=== PATIENT | female | born 1950 | race Caucasian/White ===

== ENCOUNTER → 2017-05-24 | Outpatient (CLI) | payer MEDICARE, BC ==
[2017-05-24 10:57] LABS: EKG EKG PERFORMED
[2017-05-24 11:30] LABS: Appearance,Urine Clear (Clear); Bilirubin,Urine Negative (Negative); Glucose,Urine (UA) Negative (Negative); Ketones,Urine Negative (Negative); Leukocyte Esterase,Urine Negative (Negative); Nitrite,Urine Negative (Negative); PH, Urine 5.5 (5.0-8.0); Protein,Urine Negative (Negative); UA Billing (MACRO vs. MICRO) CHEM; Urobilinogen,Urine <2.0 mg/dL (<2.0)
[2017-05-24 11:41] LABS: CH 30.3; CHCM 33.3; HCT 41.8 % (34.0-46.0); HDW 2.38; HGB 13.4 gm/dL (11.4-16.0); MCH 29.1 pg (25.0-35.0); MCV 91.2 fL (80.0-100.0); Mean Platelet Volume 7.5; RBC 4.58 m/uL (3.80-5.40); RDW 14.8 % (11.5-15.5); WBC 6.2 k/uL (3.8-10.6)
[2017-05-24 11:49] LABS: INR 1.1 (<1.2); Partial Thromboplastin Time 24.9 sec (22.0-30.0); Prothrombin Time 11.2 sec (9.0-12.0)
[2017-05-24 11:51] LABS: ALT 36 U/L (9-52); AST 22 U/L (14-36); Alkaline Phosphatase 52 U/L (38-126); Anion Gap 12 mmol/L; Blood Urea Nitrogen 22 mg/dL (7-17); Calcium 9.8 mg/dL (8.4-10.2); Carbon Dioxide 25 mmol/L (22-30); Chloride 108 mmol/L (98-107); Glucose 87 mg/dL (74-99); Non-African American GFR(MDRD) >60 (>60 ml/min/1.73 sqM); Potassium 4.1 mmol/L (3.5-5.1); Sodium 145 mmol/L (137-145); Total Bilirubin 0.3 mg/dL (0.2-1.3); Total Protein 7.7 g/dL (6.3-8.2)
== END | disposition home or self-care (01) ==
LOC: LABPAT 10:39
PROVIDERS: ATTEND Orthopaedic Surgery
DX: Z01.810 Encounter for preprocedural cardiovascular examination (principal); Z01.812 Encounter for preprocedural laboratory examination
CPT/HCPCS: 80053; 81003; 85027; 85610; 85730; 87070; 93005

== ENCOUNTER → 2018-01-23 | Outpatient (CLI) | payer MEDICARE, BC ==
[2018-01-23 10:39] VITALS: BP 103/68; PULSE 80; RESP 16; TEMP 98; BMI 34.7
--- NOTE | 2018-01-23 11:13 | P.HPOB ---
History of Present Illness H&P Date: 01/23/18 Chief Complaint: The patient is here for her routine gynecologic exam and mammogram. This is a 67-year-old with an LMP of 2006. The patient is status post vaginal hysterectomy in 2006 for benign reasons. She is without gynecologic complaints. Review of Systems She has lost 7 pounds over the last year.She denies respiratory, cardiac and G.I. problems. She denies maltreatment or problems with falling. : she does have occasional urinary leakage with coughing. This is unchanged from last year. Past Medical History Past Medical History: COPD, Eye Disorder (Glaucoma), GERD/Reflux, Hypertension, Osteoarthritis (OA), Thyroid Disorder (Hypothyroid) Additional Past Medical History / Comment(s): STATES HAS A DISCLOCED RIGHT clavicle, HX MIGRAINE H/A, URINARY INCONTINENCE WEARS PAD, HX LOWER BACK PAIN. 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 She had to vaginal deliveries. History of Any Multi-Drug Resistant Organisms: None Reported Past Surgical History: Bladder Surgery (Abdominal bladder suspension 1991), Hysterectomy (Vaginal hysterectomy with A and P repairs in 2006), Orthopedic Surgery, Tubal Ligation Additional Past Surgical History / Comment(s): D&C, CYSTOCELE REPAIR X2, LASER SX FOR GLAUCOMA, RT FOOT TENDON SX. Colposcopy with upper G.I. 2013 Past Anesthesia/Blood Transfusion Reactions: No Reported Reaction Past Psychological History: No Psychological Hx Reported Smoking Status: Former smoker Past Alcohol Use History: Occasional (2 or 3 per month) Additional Past Alcohol Use History / Comment(s): QUIT SMOKING 1985, SMOKED 5 YRS 1PPD Past Drug Use History: None Reported Additional History: She has been since 1981 but is minimally sexually active secondary to her 's health problems. She is retired. - Past Family History Mother Family Medical History: Cancer Additional Family Medical History / Comment(s): SKIN Father Family Medical History: Cancer (Gastric and prostate) Additional Family Medical History / Comment(s): SKIN, PROSTATE, STOMACH Medications and Allergies Home Medications Medication Instructions Recorded Confirmed Type Albuterol Sulfate [Proair Hfa] 1 - 2 puff INHALATION RT-Q6H PRN 05/25/17 History Famotidine [Pepcid AC] 10 mg PO DAILY PRN 05/25/17 01/23/18 History Fluticasone/Salmeterol [Advair 1 inhalation PO RT-BID 05/25/17 01/23/18 History 250-50 Diskus] Levothyroxine Sodium [Synthroid] 50 mcg PO DAILY 05/25/17 01/23/18 History Melatonin 5 mg PO HS 05/25/17 01/23/18 History Lisinopril [Zestril] 5 mg PO HS 06/13/17 01/23/18 History Allergies Allergy/AdvReac Type Severity Reaction Status Date / Time Penicillins Allergy Unknown Verified 06/12/17 10:44 morphine AdvReac Nausea & Verified 06/12/17 10:44 Vomiting Exam - Vital Signs Vital signs: Vital Signs Temp Pulse Resp BP 01/23/18 10:33 98 F 80 16 103/68 Intake and Output 01/22/18 01/23/18 01/23/18 22:59 06:59 14:59 Other: Weight 88.904 kg Height 5'3", BMI 34.7. This is a well-developed well-nourished white female who is alert and oriented times 3 in no acute distress. HEENT: Within normal limits. NECK: Supple without mass or thyromegaly. CHEST AND LUNGS: Clear to auscultation. HEART: Regular rate and rhythm. BREASTS: Are without mass or discharge. AXILLARY EXAM: Negative for adenopathy. BACK: Negative for CVA tenderness. ABDOMEN: Soft, nontender, without palpable masses. PELVIC EXAM: External genitalia appears normal with mild to moderate atrophy. Vagina appears normal with mild to moderate atrophy. There is no evidence of prolapse. Bimanual examination is negative for mass or tenderness. RECTAL EXAM: Rectovaginal exam is negative for mass or tenderness and is negative for occult blood. EXTREMITIES: Nontender. IMPRESSION: 1. 67-year-old menopausal female who is status post vaginal hysterectomy for benign reasons. PLAN: 1. Pap smears have been discontinued. 2. Self breast awareness was discussed. 3. Screening mammogram will be done today. 4. Osteoporosis prevention was discussed. I have recommended bone density testing since it has been about 9 years. She would like to do this next year. 5. She did receive or flu shot last fall. 6. She will return in one year.
--- NOTE | 2018-01-24 13:31 | MM ---
Reason for exam: screening (asymptomatic). Last mammogram was performed 1 year and 5 months ago. History: Patient is postmenopausal. Took estrogen for 6 years 3 months beginning at age 46. Took progesterone for 6 years 3 months beginning at age 46. Physical Findings: A clinical breast exam by your physician is recommended on an annual basis and results should be correlated with mammographic findings. MG 3D Screening Mammo W/Cad Bilateral CC and MLO view(s) were taken. Prior study comparison: September 06, 2016, bilateral MG 3d screening mammo w/cad. November 24, 2014, bilateral MG screening mammo w CAD. There are scattered fibroglandular densities. Finding #1: There is a 6 mm circumscribed lobulated mass in the anterior position of the left breast. Finding #2: There are typically benign round calcifications in the anterior position of both breasts. There is no discrete abnormality. New finding since September 06, 2016 and November 24, 2014. ASSESSMENT: Incomplete: need additional imaging evaluation, BI-RAD 0 RECOMMENDATION: Ultrasound of the left breast. [facility] will attempt to contact patient to return for ultrasound.
== END | disposition home or self-care (01) ==
LOC: WWCWWP 10:21
PROVIDERS: ATTEND Obstetrics & Gynecology
DX: Z12.31 Encounter for screening mammogram for malignant neoplasm of breast (principal)
CPT/HCPCS: 77063; 77067

== ENCOUNTER → 2018-02-14 | Outpatient (CLI) | payer MEDICARE, BC ==
--- NOTE | 2018-02-15 08:25 | USB ---
Reason for exam: additional evaluation requested from abnormal screening. History: Patient is postmenopausal. Took estrogen for 6 years 3 months beginning at age 46. Took progesterone for 6 years 3 months beginning at age 46. Physical Findings: Nurse did not find any significant physical abnormalities on exam. US Breast Workup Limited LT Left limited breast ultrasound including focal area of concern, retroareolar and axilla demonstrates a 0.4 x 0.3 x 0.2cm oval, cystic lesion at 4 o'clock, a 1.1 x 1.0 x 0.6cm oval, solid, hyperechoic lesion at 5 o'clock, a 0.5 x 0.6 x 0.5cm oval, solid, calcified lesion at 10 o'clock, a 0.3 x 0.2 x 0.2cm oval, solid, calcified lesion at 10 o'clock and a 0.3 x 0.2 x 0.3cm oval, solid, calcified lesion at 10 o'clock. These results were verbally communicated with the patient and result sheet given to the patient on 02/14/18. ASSESSMENT: Probably benign, BI-RAD 3 RECOMMENDATION: Follow-up diagnostic mammogram and ultrasound of the left breast in 6 months.
== END | disposition home or self-care (01) ==
LOC: RADUSWWP 15:28
PROVIDERS: ATTEND Obstetrics & Gynecology
DX: R92.8 Other abnormal and inconclusive findings on diagnostic imaging of breast (principal)

== ENCOUNTER → 2018-11-06 | Outpatient (CLI) | payer MEDICARE, BC ==
[2018-11-06 12:28] LABS: Blood Urea Nitrogen 19 mg/dL (7-17)
--- NOTE | 2018-11-07 03:35 | CT ---
EXAMINATION TYPE: CT abdomen wo/w con DATE OF EXAM: 11/06/2018 COMPARISON: NONE HISTORY: 67-year-old female complex renal cyst, RUQ pain. Abnormal US. TECHNIQUE: Contiguous axial scanning of the abdomen before and after administration of 100 ml Isovue 300 IV contrast. Delayed images through the kidneys and coronal/sagittal reconstructions performed. CT DLP: 1686 mGycm Automated exposure control for dose reduction was used. FINDINGS: Heart remains of normal in size without pericardial effusion. Strandy atelectasis in the lower lungs. No pleural effusion. Tiny hiatal hernia. Subcentimeter hypodensity within the caudate lobe and additional 1.1 cm hypodensity along the go h epatis. 4. 2 small small for accurate CT characterization, likely cysts. The portal venous system is patent. No biliary ductal dilatation. Gallbladder, adrenal glands, spleen with a inferior splenule, and pancreas appear within normal limit s. Large exophytic cyst lateral mid right kidney measures 5.4 cm. No internal complexity seen. Just dayday cent, a subcentimeter cortical hypodensity is too small for accurate CT characterization but probably represents a cyst as well. Along the lateral lower pole of the left kidney, there is a 1.1 cm high density lesion. It shows atte nuation of around 60-70 Hounsfield units on all phases of imaging and a hemorrhagic cyst is favored b ut in this too small for accurate CT characterization. There are 2 adjacent lateral midpole cyst in the left kidney measuring 3.4 and 2.3 cm. The larger of these has a fine linear density along its superior margin that could represent a calcified thin septa tion. No abnormal nodular enhancement or thickened septation is seen. Very small parapelvic cysts are suggested in the left kidney. No dilated small bowel, free fluid, or free air no mesenteric or retroperitoneal lymphadenopathy. Mild stool burden. No pericolonic inflammatory change. The pelvis is not imaged. Degenerative disc disease lower thoracic spine. Facet arthropathy mid to lower lumbar spine and degen erative disc disease L5-S1. IMPRESSION: 1. 2 ADJACENT CYSTS WITHIN THE LATERAL LEFT KIDNEY MEASURING 3.4 AND 2.3 CM. THE LARGER CYST HAS A FI NE LINEAR DENSITY ALONG ITS SUPERIOR MARGIN THAT COULD REPRESENT A CALCIFIED THIN SEPTATION. NO THICK ENED SEPTATION OR SUSPICIOUS NODULARITY IS SEEN. THIS CAN BE CLASSIFIED A BOSNIAK 2F CYST. FOLLOW- UP IN 6 AND 12 MONTHS AND THEN YEARLY FOR 5 YEARS IS THE RECOMMENDATION FOR A CYST OF THIS TYPE. 2. A SOFT TISSUE APPEARING CYST AT THE LOWER POLE OF THE LEFT KIDNEY MEASURES 1.1 CM AND IS TOO SMALL FOR ACCURATE CT CHARACTERIZATION. THE MEASUREMENTS THAT ARE OBTAINED SUGGEST A HEMORRHAGIC OR PROTEI NACEOUS CYST. THIS SHOULD ALSO BE REASSESSED AT THE PATIENT'S FOLLOW-UPS. 3. ADDITIONAL BILATERAL BENIGN RENAL CYSTS MEASURING UP TO 5.4 CM ON THE RIGHT.
== END | disposition home or self-care (01) ==
LOC: RADCTMAIN 11:57
PROVIDERS: ATTEND Internal Medicine
DX: N28.1 Cyst of kidney, acquired (principal)
CPT/HCPCS: 82565; 84520; 74170; 36415; Q9967

== ENCOUNTER → 2019-03-27 | Outpatient (CLI) | payer MEDICARE, BC ==
[2019-03-27 09:30] VITALS: BP 124/79; PULSE 80; RESP 18; TEMP 98.6; BMI 35.4
--- NOTE | 2019-03-27 10:17 | P.HPOB ---
History of Present Illness H&P Date: 03/27/19 Chief Complaint: The patient is here for her routine gynecologic exam and ma mmogram. This is a 68-year-old with an LMP of 2006. The patient status post vaginal hysterectomy and anterior and posterior repairs for benign reasons. The patient states she has felt a small cyst inside the right labia during the past 2 years without significant change. The patient is otherwise without gynecologic complaints. Review of Systems The patient has gained 4 pounds over the last year. She denies respiratory, cardiac and G.I. problems. She denies maltreatment or problems with falling. : she does experience leakage with hard coughing and sneezing. This is greater when her bladder is full. Past Medical History Past Medical History: COPD, Eye Disorder, GERD/Reflux, Hypertension, Osteoarthritis (OA), Thyroid Disorder Additional Past Medical History / Comment(s): Glaucoma, hypothyroidism. STATES HAS A DISCLOCED RIGHT clavicle, HX MIGRAINE H/A, URINARY INCONTINENCE WEARS PAD, HX LOWER BACK PAIN. 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 She had two vaginal deliveries. History of Any Multi-Drug Resistant Organisms: None Reported Past Surgical History: Bladder Surgery, Hysterectomy, Orthopedic Surgery, Tubal Ligation Additional Past Surgical History / Comment(s): Abdominal bladder suspension 1991, vaginal hysterectomy with a and P repairs in 2006. D&C, LASER SX FOR GLAUCOMA, RT FOOT TENDON SX. Colposcopy with upper G.I. 2013 Past Anesthesia/Blood Transfusion Reactions: No Reported Reaction Past Psychological History: No Psychological Hx Reported Smoking Status: Former smoker Past Alcohol Use History: Occasional (3 or 4 per month) Additional Past Alcohol Use History / Comment(s): QUIT SMOKING 1985, SMOKED 5 YRS 1PPD Past Drug Use History: None Reported Additional History: The patient has been made since 1981 and is retired. - Past Family History Mother Family Medical History: Cancer Additional Family Medical History / Comment(s): SKIN Father Family Medical History: Cancer Additional Family Medical History / Comment(s): SKIN, PROSTATE, STOMACH Medications and Allergies Home Medications Medication Instructions Recorded Confirmed Type Albuterol Sulfate [Proair Hfa] 1 - 2 puff INHALATION RT-Q6H PRN 05/25/17 03/27/19 History Famotidine [Pepcid AC] 10 mg PO DAILY PRN 05/25/17 03/27/19 History Fluticasone/Salmeterol [Advair 1 inhalation PO RT-BID 05/25/17 03/27/19 History 250-50 Diskus] Levothyroxine Sodium [Synthroid] 50 mcg PO DAILY 05/25/17 03/27/19 History Melatonin 5 mg PO HS 05/25/17 03/27/19 History Lisinopril [Zestril] 5 mg PO HS 06/13/17 03/27/19 History Ibuprofen [Motrin] 400 mg PO Q6HR PRN 03/27/19 03/27/19 History Allergies Allergy/AdvReac Type Severity Reaction Status Date / Time Penicillins Allergy Unknown Verified 03/27/19 09:32 morphine AdvReac Nausea & Verified 03/27/19 09:32 Vomiting Exam Vital Signs Temp Pulse Resp BP Pulse Ox 03/27/19 09:25 98.6 F 80 18 124/79 93 L Intake and Output 03/26/19 03/27/19 03/27/19 22:59 06:59 14:59 Other: Weight 90.718 kg Height 5'3", weight 200 pounds, BMI 35.4. This is a well-developed well-nourished white female who is alert and oriented times 3 in no acute distress. HEENT: Within normal limits. NECK: Supple without mass or thyromegaly. CHEST AND LUNGS: Clear to auscultation. HEART: Regular rate and rhythm. BREASTS: Are without mass or discharge. AXILLARY EXAM: Negative for adenopathy. BACK: Negative for CVA tenderness. ABDOMEN: Soft, obese, nontender, without palpable masses. PELVIC EXAM: External genitalia appears normal with mild to moderate atrophy. Vagina appears normal with mild to moderate atrophy. There is a grade 2 rectocele. There is a grade one cystocele. There is mild urethral mobility with cough and Valsalva. No urinary leakage was demonstrated. Bimanual examination is negative for mass or tenderness. RECTAL EXAM: Rectovaginal exam is negative for mass or tenderness and is negative for occult blood. EXTREMITIES: Nontender. IMPRESSION: 1. 68-year-old menopausal female status post vaginal hysterectomy with grade one cystocele and grade 2 rectocele. 2. Long history of stress urinary incontinence. PLAN: 1. Pap smears have been discontinued. 2. Self breast awareness was discussed with the patient. 3. Screening mammogram will be done today. 4. We have discussed options for her stress urinary incontinence including referral to a gynecologic urologist. She would like to proceed with conservative management. We have discussed Kegal exercises with time to voids. Instructions were given to the patient on these. She will call she would like to proceed with a referral for the incontinence. 5. She does get flu shots in the fall. 6.Osteoporosis prevention was discussed. I have stressed the importance of adequate calcium, vitamin D and regular exercise. Recommended amounts of calcium and vitamin D were also discussed. It is been about 10 years since her last bone density test and I have recommended that this be done again. The was given to the patient for this. 7. She states she is due for a colonoscopy with upper endoscopy. She will arrange this through Dr. Shah. 8.She was advised to return in one year for her annual well woman exam.
--- NOTE | 2019-03-28 09:16 | MM ---
Reason for exam: screening (asymptomatic). Last mammogram was performed 7 months ago. History: Patient is postmenopausal. Took estrogen for 6 years 3 months beginning at age 46. Took progesterone for 6 years 3 months beginning at age 46. Physical Findings: A clinical breast exam by your physician is recommended on an annual basis and results should be correlated with mammographic findings. MG 3D Screening Mammo W/Cad Bilateral CC and MLO view(s) were taken. Prior study comparison: August 16, 2018, left breast MG 3d diag mammo w/cad LT. January 23, 2018, bilateral MG 3d screening mammo w/cad. There are scattered fibroglandular densities. Benign appearing calcifications in the left breast. No suspicious abnormality. No significant changes when compared with prior studies. ASSESSMENT: Benign, BI-RAD 2 RECOMMENDATION: Routine screening mammogram of both breasts in 1 year.
== END | disposition home or self-care (01) ==
LOC: WWCWWP 09:17
PROVIDERS: ATTEND Obstetrics & Gynecology
DX: Z12.31 Encounter for screening mammogram for malignant neoplasm of breast (principal)
CPT/HCPCS: 77063; 77067

== ENCOUNTER → 2019-06-05 | Outpatient (CLI) | payer MEDICARE, BC ==
--- NOTE | 2019-06-05 16:14 | BD ---
EXAMINATION TYPE: Axial Bone Density DATE OF EXAM: 06/05/2019 COMPARISON: NONE CLINICAL HISTORY: Height: 62 Weight: 202.8 FRAX RISK QUESTIONS: Alcohol (3 or more units per day): no Family History (Parent hip fracture): no Glucocorticoids (More than 3mos): no (Ex: prednisone, prednisolone, methylprednisolone, dexamethasone, and hydrocortisone). History of Fracture in Adulthood: no Secondary Osteoporosis: 1. Type 1 Diabetes: no 2. Hyperthyroidism: no 3. Menopause before 45: no 4. Malnutrition: no 5. Chronic liver disease: no Rheumatoid Arthritis: no Current Tobacco Use: no RISK FACTORS HISTORY OF: Family History of Osteoporosis: no Active: sometimes Diet low in dairy products/other sources of calcium: yes Postmenopausal woman: age 45 Lost more than 2 inches in height since high school: no MEDICATIONS: lisinopril Thyroid Medications: thyroid How Lon years Additional History: EXAM MEASUREMENTS: Bone mineral densitometry was performed using the [employer] System. Bone mineral density as measured about the Lumbar spine is: ----- L1-L4(G/cm2): 1.330 T Score Values are as follows: ----- L2: 0.4 ----- L3: 1.7 ----- L4: 1.5 ----- L1-L4: 1.3 Bone mineral density: baseline Bone mineral density about the R hip (g/cm2): 0.906 Bone mineral density about the L hip (g/cm2): 0.904 T Score values are as follows: -----R Neck: -1.0 -----L Neck: -1.0 -----R Total: 0.5 -----L Total: 0.8 Bone mineral density : baseline IMPRESSION: Osteopenia (T Score between -2.5 and -1). There is slightly increased risk of fracture and the patient may be considered for treatment. Re-Screen 2-5 years. NOTE: T-SCORE=SD OF THE YOUNG ADULT MEAN.
== END | disposition home or self-care (01) ==
LOC: RADBDWWP 09:29
PROVIDERS: ATTEND Obstetrics & Gynecology
DX: M85.80 Other specified disorders of bone density and structure, unspecified site (principal); Z78.0 Asymptomatic menopausal state
CPT/HCPCS: 77080

== ENCOUNTER → 2019-07-08 | Outpatient (CLI) | payer MEDICARE, BC ==
--- NOTE | 2019-07-08 15:58 | US ---
EXAMINATION TYPE: US kidneys/renal and bladder DATE OF EXAM: 07/08/2019 COMPARISON: CT 11/06/2018 CLINICAL HISTORY: 68-year-old female N28.1 renal cysts. Follow up kidney cysts TECHNIQUE: Multiple sonographic images of the kidneys and bladder are obtained. FINDINGS: EXAM MEASUREMENTS: Right Kidney: 9.0 x 5.0 x 4.2 cm Left Kidney: 11.2 x 4.9 x 5.2 cm Right Kidney: measures small in size when compared to left kidney, 5.4 x 4.8 x 4.5cm exophytic cyst m id pole seen on prior CT. Left Kidney: multiple exophytic cystic areas lateral mid pole with largest measuring 3.7 x 2.7 x 3.6c m with internal echoes (versus 4.1 cm on 11/06/2018), multiple cystic area medial mid pole, possible p arapelvic cysts . The septation described on the 11/06/2018 CT is not well-demonstrated by ultrasound. No hydronephrosis on either side. Bladder: wnl Bilateral Jets seen: yes IMPRESSION: Additional 6 month follow-up CT recommended as the internal complexity involving the lateral left duane al cyst seen on the 11/06/2018 CT is not well demonstrated by ultrasound. No definite enlarging cystic masses. Largest lesion measures 4.5 cm on the right and 3.7 cm on the left.
== END ==
LOC: RADUSWWP 12:35
PROVIDERS: ATTEND Urology
DX: N28.1 Cyst of kidney, acquired (principal); Z88.0 Allergy status to penicillin
CPT/HCPCS: 76770

== ENCOUNTER → 2020-05-27 | Outpatient (CLI) | payer MEDICARE ==
[2020-05-27 09:19] VITALS: BP 122/76; PULSE 74; RESP 18; TEMP 98.5
--- NOTE | 2020-05-27 10:38 | P.HPOB ---
History of Present Illness H&P Date: 05/27/20 Chief Complaint: The patient is here for her routine gynecologic exam and ma mmogram. This is a 69-year-old with an LMP of 2006. The patient is without gynecologic complaints. She is status post vaginal hysterectomy for benign reasons. The patient states she noticed pink urine on May 10. She denies noticing pink urine prior to that or since then. She denies dysuria or urinary urgency. Review of Systems She is gained 9 pounds over the last year. She denies respiratory, cardiac and G.I. problems. She denies maltreatment or problems with falling. : She continues to have chronic urinary incontinence and does require a pad. She has noticed pink urine on one occasion on 05/10/2020 as above. Past Medical History Past Medical History: COPD, Eye Disorder, GERD/Reflux, Hypertension, Osteo arthritis (OA), Thyroid Disorder Additional Past Medical History / Comment(s): Glaucoma, hypothyroidism. STATES HAS A DISCLOCED RIGHT clavicle, HX MIGRAINE H/A, URINARY INCONTINENCE WEARS PAD, HX LOWER BACK PAIN. 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 She had two vaginal deliveries. History of Any Multi-Drug Resistant Organisms: None Reported Past Surgical History: Bladder Surgery, Hysterectomy, Orthopedic Surgery, Tubal Ligation Additional Past Surgical History / Comment(s): Abdominal bladder suspension 1991, vaginal hysterectomy with a and P repairs in 2006. D&C, LASER SX FOR GLAUCOMA, RT FOOT TENDON SX. Colonoscopy with upper G.I. 2013 Past Anesthesia/Blood Transfusion Reactions: No Reported Reaction Past Psychological History: No Psychological Hx Reported Smoking Status: Former smoker Past Alcohol Use History: Occasional (3 per month) Additional Past Alcohol Use History / Comment(s): QUIT SMOKING 1985, SMOKED 5 YRS 1PPD Past Drug Use History: None Reported Additional History: The patient has been since 1981 and is retired. - Past Family History Mother Family Medical History: Cancer Additional Family Medical History / Comment(s): SKIN Father Family Medical History: Cancer Additional Family Medical History / Comment(s): SKIN, PROSTATE, STOMACH Medications and Allergies Home Medications Medication Instructions Recorded Confirmed Type Albuterol Sulfate [Proair Hfa] 1 - 2 puff INHALATION RT-Q6H PRN 05/25/17 05/27/20 History Famotidine [Pepcid AC] 10 mg PO DAILY PRN 05/25/17 05/27/20 History Fluticasone/Salmeterol [Advair 1 inhalation PO RT-BID 05/25/17 05/27/20 History 250-50 Diskus] Levothyroxine Sodium [Synthroid] 50 mcg PO DAILY 05/25/17 05/27/20 History Melatonin 5 mg PO HS 05/25/17 05/27/20 History lisinopriL [Zestril] 5 mg PO HS 06/13/17 05/27/20 History Ibuprofen [Motrin] 400 mg PO Q6HR PRN 03/27/19 05/27/20 History Calcium Carbonate [Calcium] 600 mg PO DAILY 05/27/20 05/27/20 History Allergies Allergy/AdvReac Type Severity Reaction Status Date / Time Penicillins Allergy Unknown Verified 05/27/20 09:10 morphine AdvReac Nausea & Verified 05/27/20 09:10 Vomiting Exam Vital Signs Temp Pulse Resp BP Pulse Ox 05/27/20 09:12 98.5 F 74 18 122/76 97 Intake and Output 05/26/20 05/27/20 05/27/20 22:59 06:59 14:59 Other: Weight 94.801 kg Height 5 feet 2 inches, weight 209 pounds, BMI 38.2. This is a well-developed well-nourished white female who is alert and oriented times 3 in no acute distress. HEENT: Within normal limits. NECK: Supple without mass or thyromegaly. CHEST AND LUNGS: Clear to auscultation. HEART: Regular rate and rhythm. BREASTS: Are without mass or discharge. AXILLARY EXAM: Negative for adenopathy. BACK: Negative for CVA tenderness. ABDOMEN: Soft, nontender, without palpable masses. PELVIC EXAM: External genitalia appears normal with mild to moderate atrophy. Vagina appears normal with mild to moderate atrophy. There is a grade 1 cystocele and grade 2 rectocele which is stable from her previous examination. Bimanual examination is negative for mass or tenderness. RECTAL EXAM: Rectovaginal exam is negative for mass or tenderness and is negative for occult blood. EXTREMITIES: Nontender. IMPRESSION: 1. 69-year-old menopausal female with stable grade 1 cystocele and grade 2 rectocele who is status post vaginal hysterectomy for benign reasons. 2. Long history of chronic urinary incontinence. 3. One episode of pinkish urine on 05/10/2020. Differential diagnosis will include urinary tract infection, discoloration from food, or possible urinary tract neoplasm. 3. History of osteopenia PLAN: 1. Pap smears have been discontinued. 2. Self breast awareness was discussed with the patient. 3. Screening mammogram will be done today. 4. We will obtain a urinalysis and urine culture. She states she is scheduled to see her urologist, Dr. Rios, in the near future. She was instructed to notify Dr. Rios of the pinkish urine noted on 05/10/2020. 5. She plans to get a flu shot this fall. 6.Osteoporosis prevention was discussed. I have stressed the importance of adequate calcium, vitamin D and regular exercise. Recommended amounts of calcium and vitamin D were also discussed. We will plan on repeating bone density testing in 1-2 years. 7. The patient was advised to return in 1-2 years for her well woman examination. She again is declining referral to a gynecologic urologist for the chronic urinary incontinence. She will call if she changes her mind.
[2020-05-27 15:37] LABS: Appearance,Urine Clear (Clear); Bilirubin,Urine Negative (Negative); Blood,Urine Negative (Negative); Color,Urine Yellow; Glucose,Urine (UA) Negative (Negative); Ketones,Urine Negative (Negative); Leukocyte Esterase,Urine Negative (Negative); Nitrite,Urine Negative (Negative); Protein,Urine Negative (Negative); Urobilinogen,Urine <2.0 mg/dL (<2.0)
--- NOTE | 2020-05-28 10:19 | MM ---
Reason for exam: screening (asymptomatic). Last mammogram was performed 1 year and 2 months ago. History: Patient is postmenopausal. Took estrogen for 6 years 3 months beginning at age 46. Took progesterone for 6 years 3 months beginning at age 46. Physical Findings: A clinical breast exam by your physician is recommended on an annual basis and results should be correlated with mammographic findings. MG 3D Screening Mammo W/Cad Bilateral CC and MLO view(s) were taken. Prior study comparison: March 27, 2019, bilateral MG 3d screening mammo w/cad. August 16, 2018, left breast MG 3d diag mammo w/cad LT. There are scattered fibroglandular densities. Stable benign calcifications. There is no discrete abnormality. No significant changes when compared with prior studies. ASSESSMENT: Benign, BI-RAD 2 RECOMMENDATION: Routine screening mammogram of both breasts in 1 year.
--- NOTE | 2020-05-28 13:35 | P.PN ---
Progress Note - Text Progress Note Date: 05/28/20 Urinalysis from 05/27/20 was negative. No RBC, no evidence of infection. The patient was notified by phone. She has an appointment to see her urologist and will mention the one episode of pink urine she had last month to Dr. Rios. She will also call him if she has recurrent pink urine.
== END | disposition home or self-care (01) ==
LOC: WWCWWP 09:01
PROVIDERS: ATTEND Obstetrics & Gynecology
DX: Z12.31 Encounter for screening mammogram for malignant neoplasm of breast (principal); R31.29 Other microscopic hematuria
CPT/HCPCS: 77063; 77067; 81003; 87086

== ENCOUNTER → 2020-06-29 | Outpatient (CLI) | payer MEDICARE ==
--- NOTE | 2020-06-29 18:55 | US ---
EXAMINATION TYPE: US kidneys/renal and bladder DATE OF EXAM: 06/29/2020 COMPARISON: Ultrasound 07/08/2019 CLINICAL HISTORY: 69-year-old female Left renal cyst, atypical N28.1. Bilateral renal cysts TECHNIQUE: Multiple sonographic images of the kidneys and bladder are obtained. FINDINGS: EXAM MEASUREMENTS: Right Kidney: 10.2 x 5.4 x 5.0 cm Left Kidney: 11.4 x 6.2 x 5.2 cm Post Void Residual Volume: 10.4 mL Right Kidney: lateral pole septated cyst or cystic cluster = 4.6 x 5.0 x 4.2cm (versus 5.4 x 4.8 x 4. 1 cm, previously); prominent renal pelvis, likely extrarenal pelvis measuring 1.3cm A/P Left Kidney: couple of lateral renal cysts seen with larger = 3.4 x 3.5 x 2.8cm; parapelvic cyst seen = 1.8 x 1.2 x 1.6cm. Bladder: wnl Bilateral Jets seen: yes Normal Post Void Residual: yes Incidental echogenic appearance to the hepatic parenchyma. IMPRESSION: 1. Mildly complex 5.0 cm cyst within the lateral right kidney with a thin internal septation (previou sly measuring 5.4 cm, not significantly changed). 2. Cysts within the left kidney measure up to 3.4 cm. No suspicious complexity is identified on the p resent exam. 3. Suspect underlying hepatic steatosis.
== END | disposition home or self-care (01) ==
LOC: RADUSWWP 13:30
PROVIDERS: ATTEND Urology
DX: N28.1 Cyst of kidney, acquired (principal)
CPT/HCPCS: 76770

== ENCOUNTER → 2020-07-24 | Outpatient (CLI) | payer MEDICARE ==
--- NOTE | 2020-07-26 23:27 | CT ---
EXAMINATION TYPE: CT abdomen wo/w con DATE OF EXAM: 07/24/2020 COMPARISON: Ultrasound kidneys 06/29/2020 HISTORY: Left renal cyst CT DLP: 2548.80 mGycm Automated exposure control for dose reduction was used. TECHNIQUE: Helical acquisition of images was performed from the lung bases through the top of iliac crest to include entire abdomen. CONTRAST: Performed with Oral Contrast and without and with IV Contrast, patient injected with 100 mL of Isovue 300. FINDINGS: LUNG BASES: No significant abnormality is appreciated. LIVER/GB: Borderline fatty liver. Too small to characterize hypodense lesion within the caudate. PANCREAS: No significant abnormality is seen. SPLEEN: Splenule. No significant abnormality is seen. ADRENALS: No significant abnormality is seen. KIDNEYS: No hydronephrosis bilaterally. The right kidney demonstrates a 5.0 cm homogenously simple no nenhancing cyst. No definitive septation is seen with this right cyst, and there is no evidence of en hancement. The single septation demonstrated on 06/29/2020 ultrasound comparison is within, likely le ss than 2 mm, meeting 2019 Bosniak criteria for class 2 cyst. The left renal lower pole demonstrates a 1.0 cm exophytic hyperdense nonenhancing lesion with Hounsfield units of 64 (3:46:40), and may repr esent hemorrhagic/proteinaceous cyst (Bosniak 2). The left interpolar kidney demonstrates a 2.2 cm no nenhancing homogeneously simple cyst (Bosniak 1). The left interpolar kidney demonstrates a 3.8 cm ho mogenously simple cyst with thin peripheral calcification of the wall versus a septation (Bosniak 2) (6:32). BOWEL: No significant abnormality is seen. LYMPH NODES: No significant abnormality is seen. OSSEOUS STRUCTURES: Degenerative changes of the spine. OTHER: No abdominal aortic aneurysm. IMPRESSION: Per 2019 Bosniak classification, there are Bosniak 1 and Bosniak 2 benign renal cysts bilaterally. Th e 1.0 cm left renal lower pole hyperdense nonenhancing lesion most likely represents benign hemorrhag ic/proteinaceous cyst.
== END | disposition home or self-care (01) ==
LOC: RADCTMAIN 10:54
PROVIDERS: ATTEND Urology
DX: N28.1 Cyst of kidney, acquired (principal); N28.89 Other specified disorders of kidney and ureter; Z88.0 Allergy status to penicillin
CPT/HCPCS: 82565; 84520; 74170; 36415; Q9967

== ENCOUNTER → 2021-03-24 | Outpatient (CLI) | payer MEDICARE ==
[2021-03-24 10:07] LABS: Basophils # (A) 0.1 k/uL (0-0.2); Basophils % (A) 1 %; Eosinophils # (A) 0.2 k/uL (0-0.7); Eosinophils % (A) 3 %; HCT 44.1 % (34.0-46.0); HGB 14.8 gm/dL (11.4-16.0); Lymphocytes # (A) 3.1 k/uL (1.0-4.8); Lymphocytes % (A) 43 %; MCH 31.3 pg (25.0-35.0); MCHC 33.7 g/dL (31.0-37.0); MCV 93.1 fL (80.0-100.0); Monocytes # (A) 0.4 k/uL (0-1.0); Monocytes % (A) 5 %; Neutrophils # (A) 3.3 k/uL (1.3-7.7); Neutrophils % (A) 46 %; Platelet Count 287 k/uL (150-450); RBC 4.73 m/uL (3.80-5.40); RDW 13.3 % (11.5-15.5); WBC 7.2 k/uL (3.8-10.6)
[2021-03-24 10:16] LABS: Appearance,Urine Clear (Clear); Bilirubin,Urine Negative (Negative); Blood,Urine Negative (Negative); Color,Urine Yellow; Glucose,Urine (UA) Negative (Negative); Ketones,Urine Negative (Negative); Leukocyte Esterase,Urine Negative (Negative); Nitrite,Urine Negative (Negative); Protein,Urine Negative (Negative); Specific Gravity,Urine 1.019 (1.001-1.035); Urobilinogen,Urine <2.0 mg/dL (<2.0)
[2021-03-24 11:01] LABS: African American GFR (CKD) >90 (>60 ml/min/1.73 sqM); Anion Gap 9 mmol/L; Blood Urea Nitrogen 18 mg/dL (7-17); Calcium 9.9 mg/dL (8.4-10.2); Carbon Dioxide 26 mmol/L (22-30); Chloride 107 mmol/L (98-107); Glucose 106 mg/dL (74-99); Non-African American GFR(CKD) 88 (>60 ml/min/1.73 sqM); Potassium 4.3 mmol/L (3.5-5.1); Sodium 142 mmol/L (137-145)
== END | disposition home or self-care (01) ==
LOC: LABPAT 09:08
PROVIDERS: ATTEND Urology
DX: Z01.812 Encounter for preprocedural laboratory examination (principal); N39.3 Stress incontinence (female) (male); R35.0 Frequency of micturition
CPT/HCPCS: 80048; 81003; 85025; 87086

== ENCOUNTER 2021-03-31 06:12 | Day surgery (SDC) | payer MEDICARE ==
[2021-03-30 08:57] VITALS: BMI 36.1
--- NOTE | 2021-03-30 11:10 | P.GSHP ---
History of Present Illness H&P Date: 03/30/21 70 yo female who has a history of ed documented on history, p/e and UDS. Uds studies show a normal bladder and lpp > 100cm h2o. SHe was given treatment options and will proceed with TOT. the risks and complications have been discussed including the mesh controversy, failure, retention, injury to adjacent organs SHe comes for this procedure. - Constitutional Constitutional: Denies chills, Denies fever - EENT Eyes: denies blurred vision, denies pain Ears, nose, mouth and throat: Denies headache, Denies sore throat - Cardiovascular Cardiovascular: Denies chest pain, Denies shortness of breath - Respiratory Respiratory: Denies cough, Denies 7 - Gastrointestinal Gastrointestinal: Denies abdominal pain, Denies diarrhea, Denies nausea, Denies vomiting - Genitourinary (Female) Genitourinary: Denies dysuria, Denies hematuria - Genitourinary (Male) Genitourinary: Denies dysuria, Denies hematuria - Musculoskeletal Musculoskeletal: Denies myalgias - Integumentary Integumentary: Denies pruritus, Denies rash - Neurological Neurological: Denies numbness, Denies weakness - Psychiatric Psychiatric: Denies anxiety, Denies depression - Endocrine Endocrine: Denies fatigue, Denies weight change Past Medical History Past Medical History: COPD, Eye Disorder, GERD/Reflux, Hypertension, Osteoarthritis (OA), Thyroid Disorder Additional Past Medical History / Comment(s): Glaucoma, hypothyroidism. , HX MIGRAINE H/A, URINARY INCONTINENCE WEARS PAD, HX LOWER BACK PAIN. History of Any Multi-Drug Resistant Organisms: None Reported Past Surgical History: Bladder Surgery, Hysterectomy, Joint Replacement, Orthopedic Surgery, Tubal Ligation Additional Past Surgical History / Comment(s): Abdominal bladder suspension 1991, vaginal hysterectomy with a and P repairs in 2006. D&C, LASER SX FOR GLAUCOMA, RT FOOT TENDON SX. Colonoscopy with upper G.I. 2013,LT TKA Past Anesthesia/Blood Transfusion Reactions: No Reported Reaction Smoking Status: Former smoker - Past Family History Mother Family Medical History: Cancer Additional Family Medical History / Comment(s): SKIN Father Family Medical History: Cancer Additional Family Medical History / Comment(s): SKIN, PROSTATE, STOMACH Medications and Allergies Home Medications Medication Instructions Recorded Confirmed Type Albuterol Sulfate [Proair Hfa] 1 - 2 puff INHALATION RT-Q6H PRN 05/25/17 03/30/21 History Famotidine [Pepcid AC] 10 mg PO DAILY PRN 05/25/17 03/30/21 History Fluticasone/Salmeterol [Advair 1 inhalation PO RT-BID 05/25/17 03/30/21 History 250-50 Diskus] Levothyroxine Sodium [Synthroid] 50 mcg PO DAILY 05/25/17 03/30/21 History Melatonin 10 mg PO HS 05/25/17 03/30/21 History lisinopriL [Zestril] 5 mg PO HS 06/13/17 03/30/21 History Ibuprofen [Motrin] 400 mg PO Q6HR PRN 03/27/19 03/30/21 History Calcium Carbonate [Calcium] 600 mg PO DAILY 05/27/20 03/30/21 History Allergies Allergy/AdvReac Type Severity Reaction Status Date / Time Penicillins Allergy Unknown Verified 03/30/21 08:48 Childhood morphine AdvReac Nausea & Verified 03/30/21 08:48 Vomiting Surgical - Exam - General well developed, well nourished, no distress - Eyes PERRL - ENT no hearing loss - Neck trachea midline - Respiratory normal expansion, normal respiratory effort - Cardiovascular Rhythm: regular - Abdomen Abdomen: soft, non tender - Genitourinary ed hypermobile urethra. normal external genitalia, normal perineum - Integumentary no rash, no growths - Neurologic normal coordination, normal sensation - Musculoskeletal normal gait, normal posture - Psychiatric oriented to time, oriented to person, oriented to place, speech is normal, memory intact Assessment and Plan Assessment: Impression: ED Plan: TOT[ obtyrx 2]
[~2021-03-31 06:12] MED LIST: AMPICILLIN 1,000 MG in SODIUM CHLORIDE 0.9% 50 ML IVPB PRN; DEXAMETHASONE SOD PHOSPHATE 4 MG/ML 1 ML VIAL IV ONE; GENTAMICIN 100 MG in SODIUM CHLORIDE 0.9% 100 ML IVPB PRN; LACTATED RINGERS 1,000 ML IV SCH; LIDOCAINE 1% (10MG/ML) FOR IV START INTRADERMA PRN; MIDAZOLAM 2 MG/2 ML VIAL IV PRN; ONDANSETRON 4 MG/2 ML VIAL IVP ONE
[2021-03-31] MEDS ORDERED: HYDROmorphone 0.5 MG/0.5 ML SYRINGE IVP PRN (07:00)
[2021-03-31] MEDS ORDERED: SUCCINYLCHOLINE CHLORIDE 100 MG/5 ML SYR IV ONE (07:25)
[2021-03-31] MEDS ORDERED: PROPOFOL 10 MG/ML 20 ML VIAL IV ONE (07:25)
[2021-03-31] MEDS ORDERED: fentaNYL (PF) 50 MCG/ML 2 ML AMP ONE (07:25)
[2021-03-31] MEDS ORDERED: LIDOCAINE 1% INJ 10MG/ML (20 ML MDV) ONE (07:25)
[2021-03-31] MEDS ORDERED: GENTAMICIN 80 MG in SODIUM CHLORIDE 0.9% 500 ML 500 ML IRRIGATION ONE (07:54)
[2021-03-31] MEDS ORDERED: VASOPRESSIN 20 UNIT/ML 1 ML VIAL SQ ONE (07:55)
[2021-03-31] MEDS ORDERED: BACITRACIN ZINC 500 UNIT/GM OINT 28.4 GM TUBE TOPICAL ONE (08:01)
[2021-03-31] MEDS ORDERED: FAMOTIDINE 20 MG TAB PO PRN (08:19)
[2021-03-31] MEDS ORDERED: KETOROLAC 15 MG/ML 1 ML VIAL IVP PRN (08:20)
[2021-03-31] MEDS ORDERED: ONDANSETRON 4 MG/2 ML VIAL IVP PRN (08:20)
--- NOTE | 2021-03-31 08:26 | P.OP ---
Date of Procedure: 03/31/21 Preoperative Diagnosis: Stress urinary incontinence Postoperative Diagnosis: Same Procedure(s) Performed: Cystoscopy with trans-obturator tape (obtyrx] Anesthesia: VIDA Surgeon: Vivek Rios Estimated Blood Loss (ml): 25 Pathology: none sent Condition: stable Disposition: PACU Indications for Procedure: The patient is 70. She has stress urinary incontinence. Her leak point pressures are greater than 100 cm water. She comes for a trans-obturator tape Description of Procedure: The patient was brought to the operating suite. She is given a general endotracheal anesthesia. She's placed lithotomy position with a sterile prep and drape. The labia are sewn laterally with 2-0 silk. A batch speculum was introduced. A Arce catheters introduced sterilely. The anterior vaginal mucosa was elevated off the submucosa with a mixture of 20 micrograms of Pitressin and 200 mL of saline. A midline suburethral incision is made. I dissect lateral the bladder neck bilaterally. I make 2 incisions in the inguinal creases at the level of the clitoris. I passed the introducers through the obturator foramen and the vaginal space bilaterally. I inspect the bladder with the 17-Vietnamese cystoscope and there is no evidence of injury to the bladder or bladder neck. The Arce catheters were introduced. I attached the graft to the introducers and pull it back through the obturator foramen. The graft lay nicely in the mid urethra. The redundant achieving is removed. I closed the vaginal mucosa with 2-0 Vicryl. The redundant graft at the inguinal incisions removed. A close inguinal incisions with 4-0 Monocryl. A vaginal packing placed. The labial stitches are removed. The urine remains clear. The patient's awakened and returned to recovery room in good condition. Blood loss is approximately 25 mL. She'll be placed in the hospital postoperatively she is in good condition.
[2021-03-31] MEDS: DEXTROSE 5%-0.45% NACL 1,000 ML IV SCH ×2 (09:58→20:58)
[2021-03-31] MEDS: ALBUTEROL NEBULIZED 2.5 MG/3 ML INHALATION PRN (20:33)
[2021-03-31] MEDS: SYMBICORT 80-4.5 MCG INHALER INHALATION SCH (20:33)
[2021-03-31] MEDS ORDERED: lisinopriL 5 MG TAB PO SCH (21:00)
[2021-04-01 01:36] VITALS: RESP 16; TEMP 97.9
[2021-04-01] MEDS ORDERED: LEVOTHYROXINE 50 MCG TAB PO SCH (06:30)
--- NOTE | 2021-04-01 07:34 | P.DS ---
Providers Attending physician: Vivek Rios Primary care physician: [facility] Course: The patient is 70. She underwent a trans-obturator tape with cystoscopy yesterday 03/31/2021. She did well overnight. Her pain is minimal. The catheter and packing have been pulled this morning. If the patient voids without difficulty she'll be discharged home later this morning. She'll go home on a regular diet limited activity. She'll take Tylenol or Motrin for pain. She'll follow-up in the office in one week. Postoperative instructions been given. Her laboratory examination preoperatively stable her condition is good. Patient Condition at Discharge: Good Plan - Discharge Summary Discharge Rx Participant: Yes New Discharge Prescriptions: No Action Fluticasone/Salmeterol [Advair 250-50 Diskus] 1 inhalation PO RT-BID Albuterol Sulfate [Proair Hfa] 1 - 2 puff INHALATION RT-Q6H PRN PRN Reason: Shortness Of Breath Levothyroxine Sodium [Synthroid] 50 mcg PO DAILY Melatonin 10 mg PO HS Famotidine [Pepcid AC] 10 mg PO DAILY PRN PRN Reason: gerd lisinopriL [Zestril] 5 mg PO HS Ibuprofen [Motrin] 400 mg PO Q6HR PRN PRN Reason: Pain Calcium Carbonate [Calcium] 600 mg PO DAILY Discharge Medication List Albuterol Sulfate [Proair Hfa] 1 - 2 puff INHALATION RT-Q6H PRN 05/25/17 [History] Famotidine [Pepcid AC] 10 mg PO DAILY PRN 05/25/17 [History] Fluticasone/Salmeterol [Advair 250-50 Diskus] 1 inhalation PO RT-BID 05/25/17 [History] Levothyroxine Sodium [Synthroid] 50 mcg PO DAILY 05/25/17 [History] Melatonin 10 mg PO HS 05/25/17 [History] lisinopriL [Zestril] 5 mg PO HS 06/13/17 [History] Ibuprofen [Motrin] 400 mg PO Q6HR PRN 03/27/19 [History] Calcium Carbonate [Calcium] 600 mg PO DAILY 05/27/20 [History] Follow up Appointment(s)/Referral(s): Vivek Rios MD [STAFF PHYSICIAN] - 1 Week Discharge Disposition: HOME SELF-CARE
[2021-04-01] MEDS: ALBUTEROL NEBULIZED 2.5 MG/3 ML INHALATION PRN (08:31)
[2021-04-01] MEDS: SYMBICORT 80-4.5 MCG INHALER INHALATION SCH (08:31)
[2021-04-01 09:06] VITALS: BP 113/67; PULSE 71
== END 2021-04-01 10:38 | disposition home or self-care (01) ==
LOC: OR 06:12 → 6PED 09:36 → OR 04-01 10:38
PROVIDERS: ATTEND Urology
DX: N39.3 Stress incontinence (female) (male) (principal); R06.02 Shortness of breath; J44.9 Chronic obstructive pulmonary disease, unspecified; E07.9 Disorder of thyroid, unspecified; K21.9 Gastro-esophageal reflux disease without esophagitis; M19.90 Unspecified osteoarthritis, unspecified site; Z79.890 Hormone replacement therapy; Z79.51 Long term (current) use of inhaled steroids; I10 Essential (primary) hypertension; Z87.891 Personal history of nicotine dependence; Z80.9 Family history of malignant neoplasm, unspecified; Z88.0 Allergy status to penicillin; Z88.5 Allergy status to narcotic agent
CPT/HCPCS: 57288; 94640 ×4; C1771; J1580 ×2; J1100; J2405; J2001; J3010; J1885; J0330; J2704

== ENCOUNTER → 2021-06-15 | Outpatient (CLI) | payer MEDICARE ==
[2021-06-15 08:04] VITALS: BP 116/71; PULSE 82; RESP 16; TEMP 98.5
--- NOTE | 2021-06-15 08:56 | P.HPOB ---
History of Present Illness H&P Date: 06/15/21 Chief Complaint: The patient is here for her routine gynecologic exam and ma mmogram. This is a 70-year-old with an LMP of 2006. The patient is status post vaginal hysterectomy with A&P repairs for benign reasons. She also is status post abdominal bladder suspension in 1991 and more recently had a sling procedure in 2020 done by her urologist. Most recent procedure was done because of urinary incontinence which was mostly with coughing and sneezing. Following the procedure done on 03/31/2021, she states she felt something snap and since then has been having urinary incontinence any time even with standing up. She is otherwise without complaints. Review of Systems The patient's weight has been stable over the last year. She denies respiratory, cardiac, or G.I. problems. : See the HPI. Past Medical History Past Medical History: COPD, Eye Disorder, GERD/Reflux, Hypertension, Osteoarthritis (OA), Thyroid Disorder Additional Past Medical History / Comment(s): Glaucoma, hypothyroidism. STATES HAS A DISCLOCED RIGHT clavicle, HX MIGRAINE H/A, URINARY INCONTINENCE WEARS PAD, HX LOWER BACK PAIN. Past STE[employer]ANGER history: she has no history of STDs. She had two vaginal deliveries. History of Any Multi-Drug Resistant Organisms: None Reported Past Surgical History: Bladder Surgery, Hysterectomy, Orthopedic Surgery, Tubal Ligation Additional Past Surgical History / Comment(s): Abdominal bladder suspension 1991, vaginal hysterectomy with a and P repairs in 2006. Bladder sling procedure in 2020. D&C, LASER SX FOR GLAUCOMA, RT FOOT TENDON SX. Colonoscopy with upper G.I. 2013(next after 5 yr) Past Anesthesia/Blood Transfusion Reactions: No Reported Reaction Past Psychological History: No Psychological Hx Reported Smoking Status: Former smoker Past Alcohol Use History: Occasional (2 per month) Additional Past Alcohol Use History / Comment(s): QUIT SMOKING 1985, SMOKED 5 YRS 1PPD Past Drug Use History: None Reported Additional History: The patient has been since 1981 and is retired. - Past Family History Mother Family Medical History: Cancer Additional Family Medical History / Comment(s): SKIN Father Family Medical History: Cancer Additional Family Medical History / Comment(s): SKIN, PROSTATE, STOMACH Medications and Allergies Home Medications Medication Instructions Recorded Confirmed Type Albuterol Sulfate [Proair Hfa] 1 - 2 puff INHALATION RT-Q6H PRN 05/25/17 06/15/21 History Fluticasone/Salmeterol [Advair 1 inhalation PO RT-BID 05/25/17 06/15/21 History 250-50 Diskus] Levothyroxine Sodium [Synthroid] 50 mcg PO DAILY 05/25/17 06/15/21 History Melatonin 10 mg PO HS 05/25/17 06/15/21 History lisinopriL [Zestril] 5 mg PO HS 06/13/17 06/15/21 History Ibuprofen [Motrin] 400 mg PO Q6HR PRN 03/27/19 06/15/21 History Calcium Carbonate [Calcium] 600 mg PO DAILY 05/27/20 06/15/21 History Multivitamin [Multivitamins Adult 1 each PO DAILY 06/15/21 06/15/21 History Gummies] Omeprazole 20 mg PO DAILY 06/15/21 06/15/21 History guaiFENesin [Mucinex] 600 mg PO BID 06/15/21 06/15/21 History Allergies Allergy/AdvReac Type Severity Reaction Status Date / Time Penicillins Allergy Unknown Verified 06/15/21 08:07 Childhood morphine AdvReac Nausea & Verified 06/15/21 08:07 Vomiting Exam Vital Signs Temp Pulse Resp BP Pulse Ox 06/15/21 07:58 98.5 F 82 16 116/71 97 Intake and Output 06/14/21 06/15/21 06/15/21 22:59 06:59 14:59 Other: Weight 93.894 kg Height 5 feet 2 inches, weight 207 pounds, BMI 37.9. This is a well-developed well-nourished white female who is alert and oriented times 3 in no acute distress. HEENT: Within normal limits. NECK: Supple without mass or thyromegaly. CHEST AND LUNGS: Clear to auscultation. HEART: Regular rate and rhythm. BREASTS: Are without mass or discharge. AXILLARY EXAM: Negative for adenopathy. BACK: Negative for CVA tenderness. ABDOMEN: Soft, nontender, without palpable masses. PELVIC EXAM: External genitalia appears normal with mild atrophy. Vagina appears normal with mild atrophy. There is no evidence of prolapse. There is minimal urethral mobility with Valsalva. No urinary leakage was demonstrated. Bimanual examination is negative for mass or tenderness. RECTAL EXAM: Rectovaginal exam is negative for mass or tenderness and is negative for occult blood. EXTREMITIES: Nontender. IMPRESSION: 1. 70-year-old menopausal female who is status post vaginal hysterectomy for benign reasons, with normal gynecologic exam. 2. Worsening continuous urinary incontinence following a sling procedure done 2 months ago. She has had multiple procedures for urinary incontinence. There is no evidence of a cystocele and the bladder neck seems well supported. 3. History of osteopenia. PLAN: 1. Pap smears have been discontinued. 2. Self breast awareness was discussed with the patient. We have also discussed symptoms associated with inflammatory breast cancer. 3. Screening mammogram was done today. 4. Osteoporosis prevention was discussed. I have stressed the importance of adequate calcium, vitamin D and regular exercise. Recommended amounts of calcium and vitamin D were also discussed. We will plan on repeating bone density testing in 2021. 5. We have had a long discussion regarding her worsening urinary incontinence. She is requesting a referral to a gynecologic urologist for further evaluation. The patient will be referred to Dr. Asim Etienne, a gynecologic urologist who works out of [facility]. 6. She has completed her Covid vaccination series. 7. She will speak with her PCP regarding colonoscopy which is apparently do. 8. She was advised to return in one year for her annual well woman exam.
--- NOTE | 2021-06-16 09:46 | MM ---
Reason for exam: screening (asymptomatic). Last mammogram was performed 1 year and 1 month ago. History: Patient is postmenopausal. Took hormonal contraceptives for 10 years. Took estrogen for 6 years 3 months beginning at age 46. Took progesterone for 6 years 3 months beginning at age 46. Physical Findings: A clinical breast exam by your physician is recommended on an annual basis and results should be correlated with mammographic findings. MG 3D Screening Mammo W/Cad Bilateral CC and MLO view(s) were taken. Prior study comparison: May 27, 2020, bilateral MG 3d screening mammo w/cad. March 27, 2019, bilateral MG 3d screening mammo w/cad. There are scattered fibroglandular densities. There is no discrete abnormality. No significant changes when compared with prior studies. ASSESSMENT: Negative, BI-RAD 1 RECOMMENDATION: Routine screening mammogram of both breasts in 1 year.
== END | disposition home or self-care (01) ==
LOC: RADMAMWWP 07:38
PROVIDERS: ATTEND Obstetrics & Gynecology
DX: Z12.31 Encounter for screening mammogram for malignant neoplasm of breast (principal)
CPT/HCPCS: 77063; 77067

== ENCOUNTER 2021-12-14 15:43 | Emergency (ER) | payer MEDICARE ==
[2021-12-14 17:02] VITALS: PULSE 84; RESP 18; TEMP 97.8
--- NOTE | 2021-12-14 17:04 | ED ---
General Adult HPI - General Stated complaint: Abd pain - History of Present Illness Initial comments: Cassi is a p pleasant 71yo F who presents to the ER today via private vehicle f or evaluation of LLQ abdominal pain since yesterday afternoon. Pain is episodic, occurs more frequently with movement, she had some nausea and vomiting on monday. Normal BM today. No fevers, chils, dysuria or hematuria. No history of kidney stones. Does have a history of bladder sling in april 07 which failed, she reports she had out patient injections for her bladder in September of this year. - Related Data Home Medications Medication Instructions Recorded Confirmed Albuterol Sulfate [Proair Hfa] 1 - 2 puff INHALATION RT-Q6H PRN 05/25/17 06/15/21 Fluticasone/Salmeterol [Advair 1 inhalation PO RT-BID 05/25/17 06/15/21 250-50 Diskus] Levothyroxine Sodium [Synthroid] 50 mcg PO DAILY 05/25/17 06/15/21 Melatonin 10 mg PO HS 05/25/17 06/15/21 lisinopriL [Zestril] 5 mg PO HS 06/13/17 06/15/21 Ibuprofen [Motrin] 400 mg PO Q6HR PRN 03/27/19 06/15/21 Calcium Carbonate [Calcium] 600 mg PO DAILY 05/27/20 06/15/21 Multivitamin [Multivitamins Adult 1 each PO DAILY 06/15/21 06/15/21 Gummies] Omeprazole 20 mg PO DAILY 06/15/21 06/15/21 guaiFENesin [Mucinex] 600 mg PO BID 06/15/21 06/15/21 Allergies Allergy/AdvReac Type Severity Reaction Status Date / Time Penicillins Allergy Unknown Verified 12/14/21 17:03 Childhood morphine AdvReac Nausea & Verified 12/14/21 17:03 Vomiting Review of Systems ROS Statement: Those systems with pertinent positive or pertinent negative responses have been documented in the HPI. ROS Other: All systems not noted in ROS Statement are negative. Past Medical History Past Medical History: COPD, Eye Disorder, GERD/Reflux, Hypertension, Osteoa rthritis (OA), Thyroid Disorder Additional Past Medical History / Comment(s): Glaucoma, hypothyroidism. STATES HAS A DISCLOCED RIGHT clavicle, HX MIGRAINE H/A, URINARY INCONTINENCE WEARS PAD, HX LOWER BACK PAIN. 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 She had two vaginal deliveries. History of Any Multi-Drug Resistant Organisms: None Reported Past Surgical History: Bladder Surgery, Hysterectomy, Orthopedic Surgery, Tubal Ligation Additional Past Surgical History / Comment(s): Abdominal bladder suspension 1991, vaginal hysterectomy with a and P repairs in 2006. Bladder sling procedure in 2020. D&C, LASER SX FOR GLAUCOMA, RT FOOT TENDON SX. Colonoscopy with upper G.I. 2013(next after 5 yr) Past Anesthesia/Blood Transfusion Reactions: No Reported Reaction Past Psychological History: No Psychological Hx Reported Smoking Status: Former smoker Past Alcohol Use History: Occasional (2 per month) Additional Past Alcohol Use History / Comment(s): QUIT SMOKING 1985, SMOKED 5 YRS 1PPD Past Drug Use History: None Reported - Past Family History Mother Family Medical History: Cancer Additional Family Medical History / Comment(s): SKIN Father Family Medical History: Cancer Additional Family Medical History / Comment(s): SKIN, PROSTATE, STOMACH Course Vital Signs 12/14/21 16:59 Temperature 97.8 F Pulse Rate 84 Respiratory 18 Rate Blood Pressure 144/81 O2 Sat by Pulse 98 Oximetry Medical Decision Making - Medical Decision Making Pt was seen and evaluated, history was obtained from pt Physical exam unremarkable, patient has intermittent LLQ pain Labs were unremarkable urine with no signs of infection Computed tomography scan was obtained with no acute findings Results were discussed with patient. I did discuss possibility of bladder spasm, ureteral spasm. Advised follow-up with her urologic surgeon. Patient was eager for discharge home, Return parameters were discussed she was discharged in stable condition - Lab Data Result diagrams: 12/14/21 17:17 12/14/21 17:17 Lab Results 12/14/21 12/14/21 12/14/21 Range/Units 17:17 17:17 17:17 WBC 6.2 (3.8-10.6) k/uL RBC 4.85 (3.80-5.40) m/uL Hgb 14.9 (11.4-16.0) gm/dL Hct 45.3 (34.0-46.0) % MCV 93.3 (80.0-100.0) fL MCH 30.7 (25.0-35.0) pg MCHC 32.9 (31.0-37.0) g/dL RDW 13.4 (11.5-15.5) % Plt Count 280 (150-450) k/uL MPV 7.1 Neutrophils % (Manual) 52 % Band Neuts % (Manual) 1 % Lymphocytes % (Manual) 39 % Monocytes % (Manual) 4 % Eosinophils % (Manual) 4 % Neutrophils # (Manual) 3.20 (1.3-7.7) k/uL Lymphocytes # (Manual) 2.42 (1.0-4.8) k/uL Monocytes # (Manual) 0.25 (0-1.0) k/uL Eosinophils # (Manual) 0.25 (0-0.7) k/uL Nucleated RBCs 0 (0-0) /100 WBC Manual Slide Review Performed RBC Morphology Normal Sodium 136 L (137-145) mmol/L Potassium 4.0 (3.5-5.1) mmol/L Chloride 105 (98-107) mmol/L Carbon Dioxide 22 (22-30) mmol/L Anion Gap 9 mmol/L BUN 18 H (7-17) mg/dL Creatinine 0.66 (0.52-1.04) mg/dL Est GFR (CKD-EPI)AfAm >90 (>60 ml/min/1.73 sqM) Est GFR (CKD-EPI)NonAf 89 (>60 ml/min/1.73 sqM) Glucose 95 (74-99) mg/dL Plasma Lactic Acid Tate (0.7-2.0) mmol/L Calcium 9.4 (8.4-10.2) mg/dL Total Bilirubin 0.6 (0.2-1.3) mg/dL AST 37 H (14-36) U/L ALT 34 (4-34) U/L Alkaline Phosphatase 71 (38-126) U/L Total Protein 7.8 (6.3-8.2) g/dL Albumin 4.7 (3.5-5.0) g/dL Urine Color Light Yellow Urine Appearance Clear (Clear) Urine pH 5.5 (5.0-8.0) Ur Specific [place] 1.014 (1.001-1.035) Urine Protein Negative (Negative) Urine Glucose (UA) Negative (Negative) Urine Ketones Negative (Negative) Urine Blood Negative (Negative) Urine Nitrite Negative (Negative) Urine Bilirubin Negative (Negative) Urine Urobilinogen <2.0 (<2.0) mg/dL Ur Leukocyte Esterase Negative (Negative) 12/14/21 Range/Units 17:17 WBC (3.8-10.6) k/uL RBC (3.80-5.40) m/uL Hgb (11.4-16.0) gm/dL Hct (34.0-46.0) % MCV (80.0-100.0) fL MCH (25.0-35.0) pg MCHC (31.0-37.0) g/dL RDW (11.5-15.5) % Plt Count (150-450) k/uL MPV Neutrophils % (Manual) % Band Neuts % (Manual) % Lymphocytes % (Manual) % Monocytes % (Manual) % Eosinophils % (Manual) % Neutrophils # (Manual) (1.3-7.7) k/uL Lymphocytes # (Manual) (1.0-4.8) k/uL Monocytes # (Manual) (0-1.0) k/uL Eosinophils # (Manual) (0-0.7) k/uL Nucleated RBCs (0-0) /100 WBC Manual Slide Review RBC Morphology Sodium (137-145) mmol/L Potassium (3.5-5.1) mmol/L Chloride (98-107) mmol/L Carbon Dioxide (22-30) mmol/L Anion Gap mmol/L BUN (7-17) mg/dL Creatinine (0.52-1.04) mg/dL Est GFR (CKD-EPI)AfAm (>60 ml/min/1.73 sqM) Est GFR (CKD-EPI)NonAf (>60 ml/min/1.73 sqM) Glucose (74-99) mg/dL Plasma Lactic Acid Tate 0.7 (0.7-2.0) mmol/L Calcium (8.4-10.2) mg/dL Total Bilirubin (0.2-1.3) mg/dL AST (14-36) U/L ALT (4-34) U/L Alkaline Phosphatase (38-126) U/L Total Protein (6.3-8.2) g/dL Albumin (3.5-5.0) g/dL Urine Color Urine Appearance (Clear) Urine pH (5.0-8.0) Ur Specific [place] (1.001-1.035) Urine Protein (Negative) Urine Glucose (UA) (Negative) Urine Ketones (Negative) Urine Blood (Negative) Urine Nitrite (Negative) Urine Bilirubin (Negative) Urine Urobilinogen (<2.0) mg/dL Ur Leukocyte Esterase (Negative) Disposition Clinical Impression: Lower abdominal pain Disposition: HOME SELF-CARE Condition: Stable Instructions (If sedation given, give patient instructions): Abdominal Pain (ED) Is patient prescribed a controlled substance at d/c from ED?: No Referrals: Marly Shah MD [Primary Care Provider] - 1-2 days
[2021-12-14 17:47] LABS: HCT 45.3 % (34.0-46.0); HGB 14.9 gm/dL (11.4-16.0); MCH 30.7 pg (25.0-35.0); MCHC 32.9 g/dL (31.0-37.0); MCV 93.3 fL (80.0-100.0); Mean Platelet Volume 7.1; Platelet Count 280 k/uL (150-450); RBC 4.85 m/uL (3.80-5.40); RDW 13.4 % (11.5-15.5); WBC 6.2 k/uL (3.8-10.6)
[2021-12-14 17:48] LABS: ALT 34 U/L (4-34); AST 37 U/L (14-36); African American GFR (CKD) >90 (>60 ml/min/1.73 sqM); Albumin 4.7 g/dL (3.5-5.0); Alkaline Phosphatase 71 U/L (38-126); Anion Gap 9 mmol/L; Blood Urea Nitrogen 18 mg/dL (7-17); Calcium 9.4 mg/dL (8.4-10.2); Carbon Dioxide 22 mmol/L (22-30); Chloride 105 mmol/L (98-107); Glucose 95 mg/dL (74-99); Non-African American GFR(CKD) 89 (>60 ml/min/1.73 sqM); Sodium 136 mmol/L (137-145); Total Bilirubin 0.6 mg/dL (0.2-1.3); Total Protein 7.8 g/dL (6.3-8.2)
[2021-12-14 18:20] LABS: Band Neutrophils % 1 %; Eosinophils # (M) 0.25 k/uL (0-0.7); Lymphocytes # (M) 2.42 k/uL (1.0-4.8); Monocytes # (M) 0.25 k/uL (0-1.0); Neutrophils % (M) 52 %; Nucleated Red Blood Cells 0 /100 WBC (0-0); Total Cells Counted 100
[2021-12-14 18:21] LABS: RBC Morphology Normal
--- NOTE | 2021-12-14 19:32 | XR ---
EXAMINATION TYPE: XR KUB DATE OF EXAM: 12/14/2021 COMPARISON: NONE HISTORY: Abdominal pain TECHNIQUE: 2 views FINDINGS: 2 views upright were obtained and show no sign of intestinal obstruction or pneumoperitoneu m. Fecal pattern is normal. There is no evidence of a mass. Lung bases are clear. There are no pathol ogic calcifications over the kidneys. IMPRESSION: Nonacute abdomen.
[2021-12-14 19:52] LABS: Appearance,Urine Clear (Clear); Bilirubin,Urine Negative (Negative); Blood,Urine Negative (Negative); Color,Urine Light Yellow; Glucose,Urine (UA) Negative (Negative); Ketones,Urine Negative (Negative); Leukocyte Esterase,Urine Negative (Negative); Nitrite,Urine Negative (Negative); PH, Urine 5.5 (5.0-8.0); Protein,Urine Negative (Negative); Specific Gravity,Urine 1.014 (1.001-1.035); Urobilinogen,Urine <2.0 mg/dL (<2.0)
--- NOTE | 2021-12-14 20:48 | CT ---
EXAMINATION TYPE: CT abdomen pelvis w con DATE OF EXAM: 12/14/2021 COMPARISON: 07/24/2020 HISTORY: LLQ pain CT DLP: 1971.8 mGycm Automated exposure control for dose reduction was used. CONTRAST: Performed with IV Contrast, patient injected with 100 mL of Isovue 300. Images obtained from the diaphragm to the floor the pelvis with IV contrast. Lung bases are clear of consolidation. There is minimal subsegmental atelectasis left lung base. Hear t size is normal. There is no pericardial effusion. Liver spleen stomach pancreas and gallbladder appear intact. The bile ducts are not dilated. There is no adrenal mass. Kidneys show satisfactory contrast opacification. There is no hydronephrosi s. There are left-sided renal parapelvic cysts. There are multiple bilateral renal cortical cysts estelita t measure up to 5 cm. No hydronephrosis. Delayed images show normal renal excretion. Ureters are nond ilated. Bladder distends smoothly. There is no inguinal hernia. There is no retroperitoneal adenopath y. There is no evidence of a pelvic mass. No free fluid in the pelvis. Appendix appears normal. There is no mesenteric edema. No ascites or free air. No sign of a bowel obstruction. The lumbar vertebrae have normal alignment. No compression fracture. Posterior elements are intact. B joel pelvis is intact. Hip joints are intact. Sacroiliac joints are intact. There is a mild relative s bernard stenosis at L4-5 due to facet arthropathy. IMPRESSION: No acute abnormality of the abdomen and pelvis. No adverse change compared to old exam. Multiple raine l cysts.
[2021-12-14 22:24] VITALS: BP 140/80
== END 2021-12-14 22:24 | disposition home or self-care (01) ==
LOC: EC 15:43
DX: R10.32 Left lower quadrant pain (principal); I10 Essential (primary) hypertension; J44.9 Chronic obstructive pulmonary disease, unspecified; K21.9 Gastro-esophageal reflux disease without esophagitis; E03.9 Hypothyroidism, unspecified; M19.90 Unspecified osteoarthritis, unspecified site; Z87.891 Personal history of nicotine dependence; Z79.51 Long term (current) use of inhaled steroids; Z79.890 Hormone replacement therapy; Z79.899 Other long term (current) drug therapy
CPT/HCPCS: 36415; 80053; 83605; 85025; 81003; 74018; 74177; 99284; Q9967

== ENCOUNTER → 2022-06-22 | Outpatient (CLI) | payer MEDICARE ==
[2022-06-22 11:21] VITALS: BP 129/70; PULSE 79; RESP 17; TEMP 98.3
--- NOTE | 2022-06-22 12:18 | P.HPOB ---
History of Present Illness H&P Date: 06/22/22 Chief Complaint: The patient is here for her routine gynecologic exam and ma mmogram. This is a 71-year-old with an LMP of 2006. The patient is status post vaginal hysterectomy with anterior and posterior repairs in the past for benign reasons. The patient is without gynecologic complaints. She did see Dr. Asim Etienne for her urinary incontinence problems. He did not feel like she was a surgical candidate because of the previous procedures she has had and her w eight, according to the patient. He did do some type of injections which helped slightly for a couple of months but the improvement did not last. She will be seeing him again for additional options. She thinks there may be some type of pessary kind of device that may be used when she sees him. Review of Systems She is getting about 2 pounds over the past year. Respiratory: She seems to get slightly short of breath with exertion. She has seen her dobby loom chain pegger and vice admiral for this. She denies cardiac or GI problems. Past Medical History Past Medical History: COPD, Eye Disorder, GERD/Reflux, Hypertension, Osteoarthritis (OA), Thyroid Disorder Additional Past Medical History / Comment(s): Glaucoma, hypothyroidism. STATES HAS A DISCLOCED RIGHT clavicle, HX MIGRAINE H/A, URINARY INCONTINENCE WEARS PAD, HX LOWER BACK PAIN. 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 She had two vaginal deliveries. History of Any Multi-Drug Resistant Organisms: None Reported Past Surgical History: Bladder Surgery, Hysterectomy, Orthopedic Surgery, Tubal Ligation Additional Past Surgical History / Comment(s): Abdominal bladder suspension 1991, vaginal hysterectomy with a and P repairs in 2006. Bladder sling procedure in 2020. D&C, LASER SX FOR GLAUCOMA, RT FOOT TENDON SX. Colonoscopy with upper G.I. 2013(next after 5 yr) Past Anesthesia/Blood Transfusion Reactions: No Reported Reaction Past Psychological History: No Psychological Hx Reported Smoking Status: Former smoker Past Alcohol Use History: Occasional (2 per month) Additional Past Alcohol Use History / Comment(s): QUIT SMOKING 1985, SMOKED 5 YRS 1PPD Past Drug Use History: None Reported Additional History: She has been since 1981 and no longer has sexual intercourse. She is retired. She helps care for one of her adult grandchildren who has mental disability. - Past Family History Mother Family Medical History: Cancer Additional Family Medical History / Comment(s): SKIN Father Family Medical History: Cancer Additional Family Medical History / Comment(s): SKIN, PROSTATE, STOMACH Medications and Allergies Home Medications Medication Instructions Recorded Confirmed Type Albuterol Sulfate [Proair Hfa] 1 - 2 puff INHALATION RT-Q6H PRN 05/25/17 06/22/22 History Fluticasone Propion/Salmeterol 1 inhalation PO RT-BID 05/25/17 06/22/22 History [Advair 250-50 Diskus] Levothyroxine Sodium [Synthroid] 50 mcg PO DAILY 05/25/17 06/22/22 History Melatonin 10 mg PO HS 05/25/17 06/22/22 History lisinopriL [Zestril] 5 mg PO HS 06/13/17 06/22/22 History Ibuprofen [Motrin] 400 mg PO Q6HR PRN 03/27/19 06/22/22 History Calcium Carbonate [Calcium] 600 mg PO DAILY 05/27/20 06/22/22 History Multivitamin [Multivitamins Adult 1 each PO DAILY 06/15/21 06/22/22 History Gummies] Omeprazole 20 mg PO DAILY 06/15/21 06/22/22 History guaiFENesin [Mucinex] 600 mg PO BID 06/15/21 06/22/22 History Allergies Allergy/AdvReac Type Severity Reaction Status Date / Time Penicillins Allergy Unknown Verified 06/22/22 11:18 Childhood morphine AdvReac Nausea & Verified 06/22/22 11:18 Vomiting Exam Vital Signs Temp Pulse Resp BP Pulse Ox 06/22/22 11:18 98.3 F 79 17 129/70 97 Intake and Output 06/21/22 06/22/22 06/22/22 22:59 06:59 14:59 Other: Weight 94.801 kg Height 5 feet 3 inches, weight 209 pounds, BMI 37.0. This is a well-developed well-nourished white female who is alert and oriented times 3 in no acute distress. HEENT: Within normal limits. NECK: Supple without mass or thyromegaly. CHEST AND LUNGS: Clear to auscultation. HEART: Regular rate and rhythm. BREASTS: Are without mass or discharge. AXILLARY EXAM: Negative for adenopathy. BACK: Negative for CVA tenderness. ABDOMEN: Soft, nontender, without palpable masses. PELVIC EXAM: External genitalia appears normal with mild to moderate atrophy. Vagina appears normal with mild to moderate atrophy. There is a grade 1 cystocele and grade 1 rectocele. The vaginal cuff seems well supported. Bimanual examination is negative for mass or tenderness. RECTAL EXAM: Rectovaginal exam is negative for mass or tenderness and is negative for occult blood. EXTREMITIES: Nontender. IMPRESSION: 1. 71-year-old menopausal female status post vaginal hysterectomy with A and P repairs in 2006 with normal gynecologic exam. 2. Mixed urinary incontinence status post multiple bladder procedures in the past who is currently seeing a urogram supervisor [place] [employer] for this. 3. History of osteopenia. PLAN: 1. Pap smears have been discontinued. 2. Self breast awareness was discussed with the patient. We have also discussed symptoms associated with inflammatory breast cancer. 3. Screening mammogram will be done today. 4. Osteoporosis prevention was discussed. I have stressed the importance of adequate calcium, vitamin D and regular exercise. Recommended amounts of calcium and vitamin D were also discussed. Bone density testing will be done today. 5. The patient will continue to follow up with Dr. Etienne for her urinary incontinence issues. 6. Weight control was discussed. I have stressed the importance of good nutrition, regular exercise and adequate fiber intake. 7. She was advised to return in one year for her annual well woman exam.
--- NOTE | 2022-06-22 13:26 | BD ---
EXAMINATION TYPE: Axial Bone Density DATE OF EXAM: 06/22/2022 COMPARISON: NONE CLINICAL HISTORY: 71 years year old Female. ICD-10 CODE: Z78.0 POST MENOPAUSAL WITHOUT HRT Height: 62 Weight: 208.3 FRAX RISK QUESTIONS: Alcohol (3 or more units per day): no Family History (Parent hip fracture): no Glucocorticoids (More than 3mos): no (Ex: prednisone, prednisolone, methylprednisolone, dexamethasone, and hydrocortisone). History of Fracture in Adulthood: no Secondary Osteoporosis: 1. Type 1 Diabetes: no 2. Hyperthyroidism: no 3. Menopause before 45: yes 4. Malnutrition: no 5. Chronic liver disease: no Rheumatoid Arthritis: no Current Tobacco Use: no RISK FACTORS HISTORY OF: Surgery to Spine/Hip(right/left)/Wrist (right/left): no Family History of Osteoporosis: no Active: no Diet low in dairy products/other sources of calcium: yes Postmenopausal woman: yes Lost more than 2 inches in height since high school: no MEDICATIONS: Thyroid Medications: levothyroxine How Lon years Additional History: EXAM MEASUREMENTS: Bone mineral densitometry was performed using the [employer] System. Bone mineral density as measured about the Lumbar spine is: ----- L1-L4(G/cm2): 1.282 T Score Values are as follows: ----- L1: 0.7 ----- L2: 0.7 ----- L3: 0.8 ----- L4: 0.9 ----- L1-L4: 0.8 Bone mineral density : previous unavailable Bone mineral density about the R hip (g/cm2): 0.843 Bone mineral density about the L hip (g/cm2): 0.850 T Score values are as follows: -----R Neck: -1.4 -----L Neck: -1.4 -----R Total: 0.3 -----L Total: 0.5 Bone mineral density : baseline FRAX%s: The graph provided illustrates a 9.1% chance for a major osteoporotic fx and a 1.3% chance fo r the hips probability for fx in 10 years time. IMPRESSION: Osteopenia (T Score between -2.5 and -1) of the femoral necks. There is slightly increased risk of fracture and the patient may be considered for treatment. Re-Screen 2-5 years. NOTE: T-SCORE=SD OF THE YOUNG ADULT MEAN.
--- NOTE | 2022-06-23 08:24 | MM ---
Reason for Exam: Screening (asymptomatic). Last mammogram was performed 1 year(s) and 1 month(s) ago. Patient History: Menarche at age 12. First Full-Term at age 20. Hysterectomy at age 55. Postmenopausal. Previous chest radiation therapy. Estrogen for 6 years, 3 months, from age 46 until age 53. Progesterone for 6 years, 3 months, from age 46 until age 53. Patient used Hormonal Contraceptives for 10 years. Risk Values: Ling 5 year model risk: 1.6%. NCI Lifetime model risk: 4.3%. Prior Study Comparison: 03/27/2019 Bilateral Screening Mammogram, [facility]. 05/27/2020 Bilateral Screening Mammogram, [facility]. 06/15/2021 Bilateral Screening Mammogram, [facility]. Tissue Density: There are scattered fibroglandular densities. Findings: Analyzed By CAD. No new suspicious mass in either breast. Benign calcifications within the left breast. Grouped punctate calcifications within the right breast anterior depth centrally well-visualized on the CC view. Overall Assessment: Incomplete: need additional imaging evaluation, BI-RAD 0 Management: Diagnostic Mammogram of the right breast. A clinical breast exam by your physician is recommended on an annual basis and results should be correlated with mammographic findings. [facility] will attempt to contact patient to return for supplemental views and ultrasound if indicated. Electronically signed and approved by: Moe Lechuga D.O.
== END ==
LOC: WWCWWP 11:00
PROVIDERS: ATTEND Obstetrics & Gynecology
DX: Z01.419 Encounter for gynecological examination (general) (routine) without abnormal findings (principal); Z12.31 Encounter for screening mammogram for malignant neoplasm of breast; Z78.0 Asymptomatic menopausal state; Z88.0 Allergy status to penicillin; Z88.6 Allergy status to analgesic agent; Z87.891 Personal history of nicotine dependence; E66.9 Obesity, unspecified; Z68.37 Body mass index [BMI] 37.0-37.9, adult
CPT/HCPCS: 77063; 77067; 77080

== ENCOUNTER → 2022-06-29 | Outpatient (CLI) | payer MEDICARE ==
--- NOTE | 2022-06-29 15:35 | MM ---
Reason for Exam: Additional evaluation requested from abnormal screening. Last screening mammogram was performed less than 1 month ago. Patient History: Menarche at age 12. First Full-Term at age 20. Hysterectomy at age 55. Postmenopausal. Previous chest radiation therapy. Estrogen for 6 years, 3 months, from age 46 until age 53. Progesterone for 6 years, 3 months, from age 46 until age 53. Patient used Hormonal Contraceptives for 10 years. Risk Values: Ling 5 year model risk: 1.6%. NCI Lifetime model risk: 4.3%. Prior Study Comparison: 10/08/2007 Bilateral Screening Mammogram, [facility]. 11/04/2008 Bilateral Screening Mammogram, [facility]. 05/06/2010 Bilateral Screening Mammogram, [facility]. 05/25/2011 Bilateral Screening Mammogram, [facility]. 09/05/2012 Bilateral Screening Mammogram, [facility]. 09/06/2013 Bilateral Screening Mammogram, [facility]. 11/24/2014 Bilateral Screening Mammogram, [facility]. 09/06/2016 Bilateral Screening Mammogram, [facility]. 01/23/2018 Bilateral Screening Mammogram, [facility]. 02/14/2018 Left Diagnostic Ultrasound, [facility]. 08/16/2018 Left Diagnostic Ultrasound, [facility]. 08/16/2018 Left Diagnostic Mammogram, [facility]. 03/27/2019 Bilateral Screening Mammogram, [facility]. 05/27/2020 Bilateral Screening Mammogram, [facility]. 06/15/2021 Bilateral Screening Mammogram, [facility]. 06/22/2022 Bilateral MG 3D screening mammo w/cad, [facility]. Tissue Density: Right: There are scattered fibroglandular densities. Findings: Analyzed By CAD. Magnification views fail to depict the questioned group of microcalcifications along the retroareolar plane on the CC view. Findings may be an artifact of the synthesized image on the screening exam. 6 month follow-up to assess. Overall Assessment: Probably benign, BI-RAD 3 Management: Diagnostic Mammogram of the right breast in 6 months. 1. Patient should continue monthly self breast exams. 2. A clinical breast exam by your physician is recommended on an annual basis. 3. This exam should not preclude additional follow-up of suspicious palpable abnormalities. Results were given to the patient verbally at the time of exam. Electronically signed and approved by: [place] M.D. Radiologist
--- NOTE | 2022-06-30 10:45 | P.PN ---
Progress Note - Text Progress Note Date: 06/30/22 OUTPATIENT FOLLOW-UP NOTE TEST(S)/RESULTS: Right breast workup following her screening mammogram was done on 06/29/2022. This was felt to be probably benign. METHOD OF NOTIFICATION: The patient was notified by the radiology department at the time of the workup. PATIENT COMMENTS: DIAGNOSIS: Probably benign right breast workup. DISCUSSION: Right breast diagnostic mammogram was recommended in 6 months. The order slip will be mailed to the patient. PLAN: As above.
== END | disposition home or self-care (01) ==
LOC: RADMAMWWP 14:50
PROVIDERS: ATTEND Obstetrics & Gynecology
DX: R92.8 Other abnormal and inconclusive findings on diagnostic imaging of breast (principal); Z92.3 Personal history of irradiation; Z04.9 Encounter for examination and observation for unspecified reason; Z78.0 Asymptomatic menopausal state
CPT/HCPCS: 77065; G0279; 77061

== ENCOUNTER → 2022-12-30 | Outpatient (CLI) | payer MEDICARE ==
--- NOTE | 2022-12-30 13:16 | MM ---
Reason for Exam: Follow-up at short interval from prior study. Last screening mammogram was performed 6 month(s) ago. Patient History: Menarche at age 12. First Full-Term at age 20. Hysterectomy at age 55. Postmenopausal. Previous chest radiation therapy. Estrogen for 6 years, 3 months, from age 46 until age 53. Progesterone for 6 years, 3 months, from age 46 until age 53. Patient used Hormonal Contraceptives for 10 years. Risk Values: Ling 5 year model risk: 1.6%. NCI Lifetime model risk: 4.1%. Prior Study Comparison: 06/15/2021 Bilateral Screening Mammogram, [facility]. 06/22/2022 Bilateral MG 3D screening mammo w/cad, [facility]. 06/29/2022 Right MG 3D work up w/cad RT, [facility]. Tissue Density: Right: There are scattered fibroglandular densities. Findings: Analyzed By CAD. No significant change in density within the right breast. Finding thought to relate regular fibroglandular tissue. No new suspicious masses, calcifications or distortions. Overall Assessment: Benign, BI-RAD 2 Management: Screening Mammogram of both breasts in 1 year. A clinical breast exam by your physician is recommended on an annual basis and results should be correlated with mammographic findings. This exam should not preclude additional follow-up of suspicious palpable abnormalities. Results were given to the patient verbally at the time of exam. Electronically signed and approved by: John Lutz DO
== END | disposition home or self-care (01) ==
LOC: RADMAMWWP 12:50
PROVIDERS: ATTEND Obstetrics & Gynecology
DX: R92.8 Other abnormal and inconclusive findings on diagnostic imaging of breast (principal); Z78.0 Asymptomatic menopausal state; Z92.3 Personal history of irradiation
CPT/HCPCS: 77065; G0279; 77061

== ENCOUNTER → 2023-02-10 | Outpatient (CLI) | payer MEDICARE ==
[2023-02-10 08:45] LABS: African American GFR (CKD) >90 (>60 ml/min/1.73 sqM); Anion Gap 10 mmol/L; Blood Urea Nitrogen 33 mg/dL (7-17); Calcium 9.7 mg/dL (8.4-10.2); Carbon Dioxide 28 mmol/L (22-30); Chloride 103 mmol/L (98-107); Glucose 124 mg/dL (74-99); Magnesium 2.1 mg/dL (1.6-2.3); Non-African American GFR(CKD) 87 (>60 ml/min/1.73 sqM); Sodium 141 mmol/L (137-145)
== END | disposition home or self-care (01) ==
LOC: LABWHC1 07:29
PROVIDERS: ATTEND Nurse Practitioner Adult Health
DX: I10 Essential (primary) hypertension (principal)
CPT/HCPCS: 36415; 80048; 83735

== ENCOUNTER → 2023-05-10 | Outpatient (CLI) | payer MEDICARE ==
[2023-05-10 16:19] LABS: Basophils # (A) 0.07 X 10*3/uL (0.00-0.10); Basophils % (A) 1.1 %; Eosinophils # (A) 0.13 X 10*3/uL (0.04-0.35); Eosinophils % (A) 2.1 %; HGB 13.5 d/dL (12.0-15.0); Lymphocytes # (A) 2.39 X 10*3/uL (0.90-5.00); Lymphocytes % (A) 38.4 %; MCHC 31.4 d/dL (32.0-37.0); MCV 95.6 FL (80.0-97.0); Mean Platelet Volume 9.7 FL (9.5-12.2); Monocytes # (A) 0.39 X 10*3/uL (0.20-1.00); Monocytes % (A) 6.3 %; NRBC Per 100 WBC 0 X 10*3/uL (0.00-0.01); Neutrophils # (A) 3.23 X 10*3/uL (1.80-7.70); Neutrophils % (A) 51.8 %; Platelet Count 274 X 10*3/uL (140-440); RDW 13.8 % (11.5-14.5); WBC 6.23 X 10*3/uL (4.50-10.00)
[2023-05-10 16:51] LABS: ALT 22 U/L (8-44); AST 19 U/L (13-35); Albumin 4.9 d/dL (3.8-4.9); Albumin/Globulin Ratio 2.23 Ratio (1.60-3.17); Alkaline Phosphatase 55 U/L (41-126); BUN/Creat Ratio 28.57 Ratio (12.00-20.00); Calcium 9.8 mg/dL (8.7-10.3); Carbon Dioxide 25.5 mmol/L (21.6-31.8); Chloride 109 mmol/L (96-109); Chol/HDL Ratio 2.84 Ratio; Globulin 2.2 d/dL (1.6-3.3); Glucose 114 mg/dL (70-110); LDL Cholesterol,Calculated 92.6 mg/dL (0.0-131.0); Potassium 5.1 mmol/L (3.5-5.5); Sodium 145 mmol/L (135-145); Total Bilirubin <0.2 mg/dL (0.3-1.2); Total Protein 7.1 d/dL (6.2-8.2); VLDL Calculation 13.64 mg/dL (5.00-40.00)
[2023-05-10 16:52] LABS: T4, Free (Free Thyroxine) 1.36 ng/dL (0.80-1.80)
== END | disposition home or self-care (01) ==
LOC: LABWHC1 07:53
PROVIDERS: ATTEND Internal Medicine Critical Care Medicine
DX: Z00.00 Encounter for general adult medical examination without abnormal findings (principal); I10 Essential (primary) hypertension; E03.9 Hypothyroidism, unspecified; E55.9 Vitamin D deficiency, unspecified; R05.9 Cough, unspecified; R53.83 Other fatigue
CPT/HCPCS: 36415; 80053; 80061; 82306; 83036; 84439; 84443; 85025

== ENCOUNTER → 2023-09-05 | Outpatient (CLI) | payer MEDICARE ==
[2023-09-05 12:49] VITALS: BP 118/76; PULSE 81; RESP 16; TEMP 98.3
--- NOTE | 2023-09-05 13:29 | P.HPOB ---
History of Present Illness H&P Date: 09/05/23 Chief Complaint: The patient is here for her routine gynecologic exam and ma mmogram. This is a 72-year-old with an LMP of 2006. She is status post vaginal hysterectomy for benign reasons. She has had issues with stress urinary incontinence and has had 3 different bladder procedures including a sling procedure, cystocele repair as well as an abdominal bladder suspension. She had seen Dr. Asim Etienne, the uro-cadd manager, who she says did not think it would be much more that he could do and was planning to get records from her previous procedures. She did not have any further follow-up with him. She is complaining of some redness and irritation under her abdominal pannus. She has tried some vkze-qos-[id number] creams without success and this has been going on for about 2 months. Review of Systems The patient has gained 12 pounds over the last year. She denies respiratory, cardiac, or G.I. problems. Past Medical History Past Medical History: COPD, Eye Disorder, GERD/Reflux, Hypertension, Osteoarthritis (OA), Sleep Apnea/CPAP/BIPAP, Thyroid Disorder Additional Past Medical History / Comment(s): Glaucoma, hypothyroidism. STATES HAS A DISCLOCED RIGHT clavicle, HX MIGRAINE H/A, URINARY INCONTINENCE WEARS PAD, HX LOWER BACK PAIN. 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 She had two vaginal deliveries. History of Any Multi-Drug Resistant Organisms: None Reported Past Surgical History: Bladder Surgery, Hysterectomy, Orthopedic Surgery, Tubal Ligation Additional Past Surgical History / Comment(s): Abdominal bladder suspension 1991, vaginal hysterectomy with a and P repairs in 2006. Bladder sling procedure in 2020. D&C, LASER SX FOR GLAUCOMA, RT FOOT TENDON SX. Colonoscopy with upper G.I. 2013(next after 5 yr) Past Anesthesia/Blood Transfusion Reactions: No Reported Reaction Past Psychological History: No Psychological Hx Reported (PHQ-2 questionaire was given and she scores 0. This is a negative screen for depression.) Smoking Status: Former smoker Past Alcohol Use History: Occasional (2 drinks per month.) Additional Past Alcohol Use History / Comment(s): QUIT SMOKING 1985, SMOKED 5 YRS 1PPD Past Drug Use History: None Reported Additional History: She has been since 1981 and is no longer has sexual intercourse. She is retired. She helps care for one of her adult grandchildren who has a mental disability. - Past Family History Mother Family Medical History: Cancer Additional Family Medical History / Comment(s): SKIN Father Family Medical History: Cancer Additional Family Medical History / Comment(s): SKIN, PROSTATE, STOMACH Medications and Allergies Home Medications Medication Instructions Recorded Confirmed Type Albuterol Sulfate [Proair Hfa] 1 - 2 puff INHALATION RT-Q6H PRN 05/25/17 09/05/23 History Fluticasone Propion/Salmeterol 1 inhalation PO RT-BID 05/25/17 09/05/23 History [Advair 250-50 Diskus] Levothyroxine Sodium [Synthroid] 50 mcg PO DAILY 05/25/17 09/05/23 History Melatonin 10 mg PO HS 05/25/17 09/05/23 History Ibuprofen [Motrin] 400 mg PO Q6HR PRN 03/27/19 09/05/23 History Calcium Carbonate [Calcium] 600 mg PO DAILY 05/27/20 09/05/23 History Multivitamin [Multivitamins Adult 1 each PO DAILY 06/15/21 09/05/23 History Gummies] Omeprazole 20 mg PO DAILY 06/15/21 09/05/23 History guaiFENesin [Mucinex] 600 mg PO BID 06/15/21 09/05/23 History Losartan [Cozaar] 50 mg PO DAILY 09/05/23 09/05/23 History Allergies Allergy/AdvReac Type Severity Reaction Status Date / Time Penicillins Allergy Unknown Verified 09/05/23 12:22 Childhood morphine AdvReac Nausea & Verified 09/05/23 12:22 Vomiting Exam Vital Signs Temp Pulse Resp BP Pulse Ox 09/05/23 12:24 98.3 F 81 16 118/76 97 Intake and Output 09/04/23 09/05/23 09/05/23 22:59 06:59 14:59 Other: Weight 88.904 kg Height 5 feet 2 inches, weight 196 pounds, BMI 35.8. This is a well-developed well-nourished white female who is alert and oriented times 3 in no acute distress. HEENT: Within normal limits. NECK: Supple without mass or thyromegaly. CHEST AND LUNGS: Clear to auscultation. HEART: Regular rate and rhythm. BREASTS: Are without mass or discharge. AXILLARY EXAM: Negative for adenopathy. BACK: Negative for CVA tenderness. ABDOMEN: Soft, nontender, without palpable masses. There is some redness beneath the pannus in the lower abdomen. This area is moist and has a distribution consistent with the pannus covered area. There is no significant excoriation or ulceration. PELVIC EXAM: External genitalia appears normal with mild to moderate atrophy. Vagina appears normal mild atrophy. There is no significant prolapse. Bimanual examination is negative for mass or tenderness. RECTAL EXAM: Rectovaginal exam is negative for mass or tenderness and is negative for occult blood. The sphincter tone is decreased. EXTREMITIES: Nontender. IMPRESSION: 1. 72-year-old menopausal female status post vaginal hysterectomy for benign reasons, with normal gynecologic exam. 2. History of osteopenia. 3. Long history of stress urinary incontinence and she has had 3 bladder procedures in the past with limited success. 4. Intertrigo beneath the abdominal pannus PLAN: 1. Pap smears have been discontinued. 2. Self breast awareness was discussed with the patient. We have also discussed symptoms associated with inflammatory breast cancer. 3. Screening mammogram will be done today. 4. Osteoporosis prevention was discussed. I have stressed the importance of adequate calcium, vitamin D and regular exercise. Recommended amounts of calcium and vitamin D were also discussed. We will plan on repeating the bone d ensity test in 1 year. 5. Nystatin powder twice a day as needed for the pannus intertrigo. [facility] [place]. 6. I recommended regular kegal exercises and timed voids to see if this helps with her urinary incontinence which requires her to wear pads. She understands that she can follow-up again with Dr. Asim Etienne to see if there is anything more that he can do. 7.PHQ-2 questionaire was given and she scores 0. This is a negative screen for depression. 8. She was advised to return in one year for her annual well woman exam.
--- NOTE | 2023-09-06 17:12 | MM ---
Reason for Exam: Screening (asymptomatic). Last mammogram was performed 1 year(s) and 2 month(s) ago. Patient History: Menarche at age 12. First Full-Term at age 20. Hysterectomy at age 55. Postmenopausal. Patient has history of breast feeding. Previous chest radiation therapy. Estrogen for 6 years, 3 months, from age 46 until age 53. Progesterone for 6 years, 3 months, from age 46 until age 53. Patient used Hormonal Contraceptives for 10 years. Risk Values: Ling 5 year model risk: 1.6%. NCI Lifetime model risk: 4.1%. Prior Study Comparison: 08/16/2018 Left Diagnostic Mammogram, [facility]. 03/27/2019 Bilateral Screening Mammogram, [facility]. 05/27/2020 Bilateral Screening Mammogram, [facility]. 06/15/2021 Bilateral Screening Mammogram, [facility]. 06/22/2022 Bilateral MG 3D screening mammo w/cad, [facility]. 06/29/2022 Right MG 3D work up w/cad RT, [facility]. 12/30/2022 Right MG 3D diag mammo w/cad RT, [facility]. Tissue Density: There are scattered fibroglandular densities. Findings: Analyzed By CAD. There are benign oil cyst calcifications anteriorly in the left breast. There is no suspicious group of microcalcifications or new suspicious mass in either breast. Overall Assessment: Benign, BI-RAD 2 Management: Screening Mammogram of both breasts in 1 year. . Patient should continue monthly self-breast exams. A clinical breast exam by your physician is recommended on an annual basis. This exam should not preclude additional follow-up of suspicious palpable abnormalities. Note on Ling scores and lifetime risk: 1. A Ling score greater than 3% is considered moderate risk. If this is the case, consider specialist referral to assess eligibility for a risk reducing agent. 2. If overall lifetime risk for the development of breast cancer is 20% or higher, the patient may qualify for future screening with alternating mammogram and breast MRI. Electronically signed and approved by: [place] M.D. Radiologist
== END ==
LOC: WWCWWP 12:09
PROVIDERS: ATTEND Obstetrics & Gynecology
DX: Z12.31 Encounter for screening mammogram for malignant neoplasm of breast (principal); Z90.710 Acquired absence of both cervix and uterus; M85.80 Other specified disorders of bone density and structure, unspecified site; E65 Localized adiposity; R32 Unspecified urinary incontinence; E03.9 Hypothyroidism, unspecified; I10 Essential (primary) hypertension; J44.9 Chronic obstructive pulmonary disease, unspecified; K21.9 Gastro-esophageal reflux disease without esophagitis; L30.4 Erythema intertrigo; M19.90 Unspecified osteoarthritis, unspecified site; Z79.890 Hormone replacement therapy; Z88.0 Allergy status to penicillin; Z88.5 Allergy status to narcotic agent; Z87.891 Personal history of nicotine dependence; Z79.899 Other long term (current) drug therapy; G47.30 Sleep apnea, unspecified; Z79.51 Long term (current) use of inhaled steroids
CPT/HCPCS: 77063; 77067

== ENCOUNTER → 2024-07-30 | Outpatient (CLI) | payer MEDICARE ==
[2024-07-30 11:19] LABS: Partial Thromboplastin Time 24.7 sec (22.0-30.0); Prothrombin Time 10.6 sec (10.0-12.5)
[2024-07-30 16:20] LABS: ALT 21 U/L (8-44); AST 23 U/L (13-35); Albumin 4.6 g/dL (3.8-4.9); Albumin/Globulin Ratio 1.92 Ratio (1.60-3.17); Alkaline Phosphatase 69 U/L (41-126); BUN/Creat Ratio 29.71 Ratio (12.00-20.00); Blood Urea Nitrogen 20.8 mg/dL (9.0-27.0); Calcium 9.7 mg/dL (8.7-10.3); Carbon Dioxide 24.4 mmol/L (21.6-31.8); Chloride 105 mmol/L (96-109); Globulin 2.4 g/dL (1.6-3.3); Glucose 106 mg/dL (70-110); Potassium 4.5 mmol/L (3.5-5.5); Sodium 142 mmol/L (135-145); Total Bilirubin 0.4 mg/dL (0.3-1.2)
[2024-07-30 17:02] LABS: HCT 42.5 % (37.2-46.3); HGB 13.7 g/dL (12.0-15.0); MCH 30.3 pg (27.0-32.0); MCHC 32.2 g/dL (32.0-37.0); Mean Platelet Volume 9.4 FL (9.5-12.2); NRBC Per 100 WBC 0 X 10*3/uL (0.00-0.01); Platelet Count 285 X 10*3/uL (140-440); RBC 4.52 X 10*6/uL (4.10-5.20)
== END | disposition home or self-care (01) ==
LOC: LABPAT 10:18
PROVIDERS: ATTEND Orthopaedic Surgery
DX: Z01.818 Encounter for other preprocedural examination (principal); Z22.322 Carrier or suspected carrier of Methicillin resistant Staphylococcus aureus; M17.11 Unilateral primary osteoarthritis, right knee
CPT/HCPCS: 80053; 85027; 85610; 85730; 87070; 93005

== ENCOUNTER 2024-08-20 09:11 | Day surgery (SDC) | payer MEDICARE ==
[~2024-08-20 09:11] MED LIST changes: -AMPICILLIN 1,000 MG in SODIUM CHLORIDE 0.9% 50 ML IVPB PRN; -DEXAMETHASONE SOD PHOSPHATE 4 MG/ML 1 ML VIAL IV ONE; -GENTAMICIN 100 MG in SODIUM CHLORIDE 0.9% 100 ML IVPB PRN; -LACTATED RINGERS 1,000 ML IV SCH; -LIDOCAINE 1% (10MG/ML) FOR IV START INTRADERMA PRN; -MIDAZOLAM 2 MG/2 ML VIAL IV PRN; -ONDANSETRON 4 MG/2 ML VIAL IVP ONE; +TRANEXAMIC 1,000 MG/100ML-NACL 1,000 MG in SALINE 1 100ML.BAG IVPB PRN
[2024-08-20] MEDS: GABAPENTIN 300 MG CAP PO PRN (09:52)
[2024-08-20] MEDS: MELOXICAM 7.5 MG TAB PO PRN (09:53)
[2024-08-20] MEDS: ACETAMINOPHEN TAB 500 MG TAB PO PRN ×2 (09:53→23:29)
[2024-08-20] MEDS: ONDANSETRON 4 MG/2 ML VIAL IVP ONE (10:04)
[2024-08-20] MEDS: LACTATED RINGERS 1,000 ML IV SCH (10:04)
[2024-08-20] MEDS: DEXAMETHASONE SOD PHOSPHATE 4 MG/ML 1 ML VIAL IV ONE (10:04)
[2024-08-20] MEDS: IV FLUID CONTINUATION 1,000 ML IV ONE ×3 (10:10→17:14)
[2024-08-20] MEDS: MIDAZOLAM 2 MG/2 ML VIAL IV ONE (10:36)
[2024-08-20] MEDS: ceFAZolin 1,000 MG in SODIUM CHLORIDE 0.9% 1,000 ML IRRIGATION ONE (11:58)
--- NOTE | 2024-08-20 12:37 | P.OP ---
Date of Procedure: 08/20/24 Preoperative Diagnosis: Severe osteoarthritis right knee Postoperative Diagnosis: Severe osteoarthritis right knee Procedure(s) Performed: Right total knee arthroplasty Implants: Fofana [employer] Nephew Journey II CR Oxinium cruciate retaining femoral component size 5, right Fof[employer] Nephew Journey nonporous tibial baseplate size 3, right Fof[employer] Nephew Journey II, XLPE Deep Dished articular insert, size 9 mm, Size 3- 4, right [employer]of[employer]hew Journey Wanda II resurfacing patellar component, oval, 29 mm All components were cemented using Palacos R bone cement The articulation is Oxinium on polyethylene Anesthesia: VIDA Surgeon: Brennan Dewitt Belt Buckle Maker #1: Mariann Shen Estimated Blood Loss (ml): 40 Pathology: none sent Condition: stable Disposition: PACU Indications for Procedure: The patient's knee is end-stage, and conservative management has failed. The operation of knee replacement has been discussed at length in the office, as well as potential risks and complications. These are inclusive of, but not l imited to: Infection, bleeding, scarring, discomfort, stiffness, blood vessel and nerve damage, need for further surgery, failure to relieve symptoms, persistence, recurrence, or worsening of problems, loosening, dislocation, wear, blood clot, pulmonary embolism, , gait dysfunction, stiffness, and other risks as discussed in the office. Patient elects to proceed and the consent form has been signed. Operative Findings: The operative findings are consistent with severe osteoarthritis of the right knee Description of Procedure: The patient was seen in the preoperative area, the consent was reviewed and the operative site was marked with a skin marker. The patient verified the procedure and the operative site. An adductor canal pain catheter and an iPACK block were placed by anesthesia in the preoperative area. The patient was then brought to the operating room and positioned on the operating room table in the supine position. Preoperative antibiotics and a gram of tranexamic acid were given intravenously. A general anesthetic was administered by the anesthesia department. Care was taken to make sure that all pressure points were adequately padded. A tourniquet was placed on the upper thigh and the lower extremity was prepped with ChloraPrep and draped in usual sterile fashion. A universal time-out was then performed which confirmed the patient's name, surgical site, ALLERGIES, and consent. The lower extremity was then exsanguinated and tourniquet was inflated to 250 mmHg. A standard anterior midline approach to the knee was performed. The skin and subcutaneous tissue were sharply dissected down to the patellar tendon. A medial parapatellar arthrotomy was then performed. The knee was then extended, the patellar was everted, and the knee was flexed. The infra-patellar fat pad was removed in order to enhance exposure. The anterior horns of both menisci were excised, and a release was performed to the posterior medial aspect of the knee. On gross visual inspection, there was complete loss of articular cartilage in the medial and patellofemoral joint spaces. There was also significant cartilage damage in the lateral compartment. There were multiple periarticular osteophytes globally about the knee which were then removed with a Ronguer. The femoral canal was then opened with the 9.5 mm intramedullary drill. The 8 mm intramedullary sabine was then inserted into the femoral canal with the distal femoral cutting guide set for 5 of valgus. The distal femoral cutting block was then pinned in place. The intramedullary sabine was then removed, and the distal femur was then cut. The cutting block was then removed and the cut was checked for symmetry. The resected bone was then measured to confirm the appropriate distal femoral resection. Next, the sizing guide was then placed and set for 3 external rotation based off of the epicondylar axis and Sumner's line. Pins were then placed and the drill holes, and the femur was sized with the sizing stylus. The pins were then removed, and the sizing guide was then removed. The spikes of the appropriate size femoral block was then placed into the predrilled holes, and malleted into place. Two 45 mm pins were then placed into the fixation holes on the cutting block. An opal wing was then used to ensure there would be no notching with the anterior cut. The anterior condyles were cut without notching. The anterior chord cut was then performed, followed by the posterior cut, posterior chamfer cut, and the anterior chamfer cut. The collateral ligaments were protected during the entire process. The cutting block was then removed. Any remaining bone and osteophytes were removed from the femur with a Ronguer. Attention was then directed to the tibia. The remaining ACL was removed with a Ronguer, and the tibia was then gently subluxed forward with a large bent knee retractor. Any remaining menisci were excised. The posterior lateral corner was cauterized in order to coagulate the lateral geniculate artery. The extra medullary tibial cutting guide was then placed, set for the appropriate rotation, slope, and depth of resection. The proximal tibia cutting guide was then pinned in place. Proximal tibia was then cut and sized. A curved osteotome was then used to remove any posterior osteophytes from the distal femur. The femoral trial was placed. A narrow saw blade was then used to remove the anterior intracondylar femoral bone. The CR notch trial was then placed. The tibial trial was placed with the appropriate-sized insert. The knee was able to fully extend and flex to 130 and was stable throughout all range of motion. The knee was then extended and the patella was everted. Patella was then measured, and then using an osteotomy guide, the patella was cut at the appropriate level. The patellar component was sized. The patellar drill guide was placed and the patella was drilled. The patella trial was then placed. The knee was then taken through range of motion with the patella trial and the patella tracked normally using the no thumbs technique. The patella trial was then removed. The knee was then flexed and lug holes were drilled through the femoral trial and the femoral trial was then removed. The tibial was then re- exposed, and the tibial broach guide was then pinned in place after it was set for the appropriate rotation to allow for the most coverage without overhang. The tibia was then reamed and broached. The femoral canal was plugged with autologous bone. The cut surfaces of bone were then irrigated with pulsatile lavage. The knee was also irrigated with Irrisept solution. The components were then opened, the cement was mixed. Cement was placed on the backside of the femoral, tibial, and patellar components. Cement was then applied to the tibial surface and pressurized into the surface using finger pressurization technique. The tibial component was then applied and excess cement was removed after it was impacted securely noted to be flush with the cut surface. In similar fashion, the cement was applied to the cut femoral surface, p ressurized and using finger pressurization the component was impacted in place. Excess cement was removed. The polyethylene spacer was then implanted and locked into position. Patellar component was then applied in a similar technique and the patellar clamp was used to hold patella in place while the cement hardened. The knee was held in full extension while the cement hardened. Once the cement had fully hardened, the knee was reinspected. Any other cement extrusion was removed the final range of motion testing showed range of motion from 0-130 with excellent stability, both medial and laterally and appropriate alignment of the leg. Patella tracked normally. After the cemented hardened, the tourniquet was released and hemostasis was obtained. A second gram of transexamic acid was given intravenously. The knee was again irrigated. The knee was again taken through range of motion and found to be stable throughout all range of motion of 0-130, and the patella tracked normally. The fascia was then closed with 0 Vicryl followed by #2 strata fix suture. The subcutaneous tissue was closed with 3-0 Vicryl and 3-0 monocryl. Exofin glue was used for the skin and placed with the knee in flexion. After the glue had dried, and Optafoam silver impregnated dressing was applied. A lightly compressive dressing was applied using web roll and Casey wrap. Patient was then transferred to the stretcher and taken to recovery room in stable condition. Sponge and needle counts were correct. The credit control assistant CORDELIA Jeff was required due the complexity surgery and the need for a skilled surgical nurse. She assisted in positioning, draping, retraction, and closure of the wound.
[2024-08-20] MEDS ORDERED: HYDROmorphone 0.5 MG/0.5 ML SYRINGE IVP PRN ×2 (13:08)
[2024-08-20] MEDS ORDERED: NA PHOS,M-B/NA PHOS,DI-BA 133 ML ENEMA RECTAL PRN (13:08)
[2024-08-20] MEDS ORDERED: MAGNESIUM HYDROXIDE 2,400 MG/30 ML CUP PO PRN (13:08)
[2024-08-20] MEDS ORDERED: NALOXONE 0.4 MG/ML 1 ML VIAL IV PRN (13:08)
[2024-08-20] MEDS ORDERED: bisacodyL 10 MG SUPP RECTAL PRN (13:08)
[2024-08-20] MEDS ORDERED: HYDROcodone/APAP 7.5-325MG 1 EACH TAB PO PRN (13:10)
[2024-08-20] MEDS: ROPIVACAINE 1,100 MG, SODIUM CHLORIDE 0.9% 500 ML 330 ML, EMPTY PAIN BALL 1 EACH MISCELLANE PRN (13:21)
--- NOTE | 2024-08-20 14:06 | XR ---
EXAMINATION TYPE: XR knee limited RT DATE OF EXAM: 08/20/2024 1:18 PM COMPARISON: None CLINICAL INDICATION: Female, 73 years old with history of Evaluation for Postop abnormality and align ment; PHH, pain TECHNIQUE: XR knee limited RT XX views submitted. FINDINGS: Status post total knee arthroplasty changes with hardware in appropriate alignment and in tact. No evidence of fracture. Subcutaneous lucencies and lucencies within the joint consistent with surgical changes. IMPRESSION: Status post total knee arthroplasty changes with hardware intact and appropriate alignment. No fractu res identified. [facility], , 08/20/2024 2:03 PM
[2024-08-20] MEDS: ONDANSETRON 4 MG/2 ML VIAL IVP PRN (14:17)
[2024-08-20] MEDS: HYDROmorphone 0.5 MG/0.5 ML SYRINGE IVP PRN (14:25)
--- NOTE | 2024-08-20 14:42 | P.ANPRN ---
Procedure Note - Anesthesia - Nerve Block Performed Right Adductor Canal Infusion Time Out Performed: Yes Date of Procedure: 08/20/24 Procedure Start Time: 10:36 Procedure Stop Time: 10:47 Location of Patient: PreOp Indication: Acute Post-Operative Pain, Requested by Surgeon Sedation Type: Sedate with meaningful contact maintained Preparation: Sterile Prep, Sterile Dressing Position: Supine Catheter: Indwelling Needle Types: Pajunk Needle Gauge: 21 Ultrasound used to visualize needle placement: Yes Ultrasound used to observe medication spread: Yes Blood Aspirated: No Pain Paresthesia on Injection Noted: No Resistance on Injection: Normal Image Stored and Saved: Yes Events: Uneventful and Well Tolerated (Ropivacaine 0.5% 20 cc plus dexamethasone 4 mg)
--- NOTE | 2024-08-20 14:43 | P.ANPRN ---
Procedure Note - Anesthesia - Nerve Block Performed Right Clck Single Time Out Performed: Yes Date of Procedure: 08/20/24 Procedure Start Time: 10:48 Procedure Stop Time: 10:51 Location of Patient: PreOp Indication: Acute Post-Operative Pain, Requested by Surgeon Sedation Type: Sedate with meaningful contact maintained Preparation: Sterile Prep Position: Supine Catheter: Indwelling Needle Gauge: 21 Ultrasound used to visualize needle placement: Yes Ultrasound used to observe medication spread: Yes Blood Aspirated: No Pain Paresthesia on Injection Noted: No Resistance on Injection: Normal Image Stored and Saved: Yes Events: Uneventful and Well Tolerated (Ropivacaine 0.5% 20 cc plus dexamethasone 4 mg)
[2024-08-20] MEDS: droPERidol 5 MG/2 ML VIAL IVP ONE (16:59)
[2024-08-20] MEDS: SODIUM CHLORIDE 0.9% 1,000 ML IV SCH (18:13)
[2024-08-20] MEDS: ALBUTEROL NEBULIZED 2.5 MG/3 ML INHALATION SCH (21:35)
[2024-08-20] MEDS: SENNOSIDES-DOCUSATE SODIUM 1 EACH TAB PO SCH (23:30)
[2024-08-20] MEDS: METOPROLOL SUCCINATE (ER) 25 MG TAB.ER.24H PO SCH (23:30)
[2024-08-20] MEDS: guaiFENesin 600 MG TABLET.ER PO SCH (23:30)
[2024-08-20] MEDS: ATORVASTATIN 20 MG TAB PO SCH (23:30)
[2024-08-20] MEDS: ASPIRIN 325 MG TAB PO SCH (23:30)
[2024-08-21] MEDS: HYDROcodone/APAP 7.5-325MG 1 EACH TAB PO PRN (02:56)
--- NOTE | 2024-08-21 03:31 | P.CONS ---
History of Present Illness - Reason for Consult Consult date: 08/21/24 Medical management Requesting physician: Mariah Guerrero - Chief Complaint Right knee pain - History of Present Illness Patient is a 73 year old female with past medical history of COPD, GERD, hyperlipidemia, hypertension, osteoarthritis, DARY on CPAP, hypothyroidism, is seen on the surgical floor for medical consultation. She reports having chronic pain in her bilateral knees. She tried conservative management with pain medications like Motrin and CBD cream as well as home exercises, but nothing provided relief with her symptoms. She was diagnosed with severe osteoarthritis of the knees and had left knee arthroplasty seven years ago. Today she underwent an elective right total knee arthroplasty uneventfully with no immediate complications noted. She complains of postsurgical pain in her right knee but denies any numbness or tingling in her right foot. Patient has not had a bowel movement but has passed flatus postoperatively. She also reports shortness of breath and cough that she attributes to her chronic obstructive pulmonary disease. She does not use oxygen at home. Denies fever, chills, chest pain, chest pain, palpitations, abdominal pain, nausea, vomiting, hematuria, dysuria, hematochezia, melena, headache, slurred speech, numbness, tingling. Vitals T 98.4 F, SD 96 bpm, RR 16, BP 130/73, O2 sat 95% on 2L O2 via nasal cannula Review of systems: Pertinent positives and negatives as discussed in HPI, a complete review of systems was performed and all other systems are negative. PMH:COPD, GERD, hyperlipidemia, hypertension, osteoarthritis, DARY on CPAP, hypothyroidism PSH: Bladder surgery, hysterectomy, orthopedic surgery, tubal ligation FMH: skin cancer Social history: Tobacco: Former smoker Alcohol: Occasional Recreational drugs: Denies use Travel: No recent travel history Sick contacts: None Physical examination: Vital signs reviewed General: nontoxic, no distress, appears at stated age Derm: warm, dry, intact Head: atraumatic, normocephalic, symmetric Eyes: EOMI, anicteric sclera Mouth: no lip lesion, mucus membranes moist Cardiovascular: S1 S2 reg, no murmur Lungs: CTA bilateral, no rhonchi, no rales, no accessory muscle use Abdominal: soft, non-tender to palpation Extremities: No edema, right knee bandaged, strength 5/5 in UE b/l and Left LE, strength 5/5 in right LE distally with limited strength at R knee due to to postsurgical pain Neuro: Alert, Oriented, Psych: well appearing, appropriate affect Assessment/Plan: Patient is a 73 year old female with PMH of COPD, GERD, hyperlipidemia, hypertension, osteoarthritis, DARY on CPAP, hypothyroidism, is status post right total knee arthroplasty, POD 0. Medicine service consulted for medical managament. #. COPD, not on home oxygen -Continue supplemental oxygen, currently at 2L via nasal cannula -Continue home meds nebulized albuterol 2.5 mg twice daily, Symbicort 2 puffs twice daily, guaifenesin 600 mg p.o. twice daily -Obtain Chest x-ray and respiratory panel -Pulmnology consulted #. Hypothyroidism -Continue home med levothyroxine 50 mcg p.o. daily #. Hyperlipidemia -Continue home med atorvastatin 20 mg p.o. #. Hypertension -Continue home med metoprolol 25 mg PO HS, losartan 50 mg p.o. daily #. Severe osteoarthritis of the right #. S/p right total knee arthroplasty, POD 0 -Postoperative knee X-ray shows s/p total knee arthroplasty changes with hardware intact and appropriate alignment, no fractures identified -Currently on acetaminophen 1000 mg p.o. every 8 hours as needed, Johnson 7.5325 1 each p.o. every 6 hours as needed out (PS 1-5), Johnson 7.5325 2 each p.o. every 6 hours as needed (PS 6-10), Dilaudid 0.25 mg IVP every 3 hours as needed (PS 4-6), Dilaudid 0.125 mg IVP every 3 hours as needed (PS 1-3), Dilaudid 0.5 mg IVP every 3 hours as needed(PS 7-10), ropivacaine (breakthrough pain) for pain management per primary surgical team -Currently on cefazolin 2 g IVPB every 8 hours and Aspirin 325 mg PO BID per primary surgical team #. Nausea and vomiting -Currently on ondansetron 4 mg IVP every 8 hours as needed #. Constipation -Currently on magnesium hydroxide 2400 mg p.o. daily as needed, Fleet enema rectally daily as needed, Senokot 2 each p.o. at bedtime, bisacodyl 10 mg rectal daily as needed DVT prophylaxis: Per primary surgical team GI prophylaxis: Pantoprazole 40 mg PO daily Past Medical History Past Medical History: COPD, Eye Disorder, GERD/Reflux, Hyperlipidemia, Hypertension, Osteoarthritis (OA), Sleep Apnea/CPAP/BIPAP, Thyroid Disorder Additional Past Medical History / Comment(s): Glaucoma, hypothyroidism, hx. dislocated Rt. clavicle, hx. migraines(decreasing in frequency), URINARY INCONTINENCE WEARS PAD, HX LOWER BACK PAIN, wears CPAP History of Any Multi-Drug Resistant Organisms: None Reported Past Surgical History: Bladder Surgery, Hysterectomy, Joint Replacement, Orthopedic Surgery, Tubal Ligation Additional Past Surgical History / Comment(s): Abdominal bladder suspension 1991, vaginal hysterectomy w/ anterior/posterior repair 2006, Bladder sling procedure 2020, D&C, LASER SX FOR GLAUCOMA, RT FOOT TENDON SX. Egd/Colonoscopy, periurethera coaptite injection 2021, Lt. TKR 2016 Past Anesthesia/Blood Transfusion Reactions: Postoperative Nausea & Vomiting (PONV) Additional Past Anesthesia/Blood Transfusion Reaction / Comm: PONV after hysterectomy only when she had morphine Past Psychological History: No Psychological Hx Reported Smoking Status: Former smoker, Second hand smoke exposure Past Alcohol Use History: Occasional Additional Past Alcohol Use History / Comment(s): QUIT SMOKING 1985, SMOKED 5 YRS 1PPD, father was a heavy smoker. 1-2 drinks/month Past Drug Use History: None Reported - Past Family History Mother Family Medical History: Cancer, COPD Additional Family Medical History / Comment(s): SKIN Father Family Medical History: Cancer, COPD Additional Family Medical History / Comment(s): SKIN, PROSTATE, STOMACH CANCER Medications and Allergies Home Medications Medication Instructions Recorded Confirmed Type Albuterol Sulfate [Proair Hfa] 2 puff INHALATION BID 05/25/17 08/20/24 History Fluticasone Propion/Salmeterol 1 inhalation PO RT-BID 05/25/17 08/20/24 History [Advair 250-50 Diskus] Levothyroxine Sodium [Synthroid] 50 mcg PO DAILY 05/25/17 08/20/24 History Melatonin 10 mg PO HS 05/25/17 08/20/24 History Ibuprofen [Motrin] 400 mg PO Q6HR PRN 03/27/19 08/20/24 History Omeprazole 20 mg PO DAILY 06/15/21 08/20/24 History guaiFENesin [Mucinex] 600 mg PO BID 06/15/21 08/20/24 History Losartan [Cozaar] 50 mg PO DAILY 09/05/23 08/20/24 History Acetaminophen Tab [Tylenol] 1,000 mg PO Q8H PRN 08/13/24 08/20/24 History Atorvastatin [Lipitor] 20 mg PO HS 08/13/24 08/20/24 History Metoprolol Succinate [Metoprolol 25 mg PO HS 08/13/24 08/20/24 History Succinate ER] Nystatin 100,000 Unit/gm Powd 1 applic TOPICAL BID PRN 08/13/24 08/20/24 History [Mycostatin Powder] Aspirin 325 mg PO BID #60 tab 08/20/24 Rx HYDROcodone/APAP 7.5-325MG [[place] 1 - 2 tab PO Q6H PRN #32 tab 08/20/24 Rx 7.5-325] Sennosides [Senokot] 2 tab PO DAILY PRN #60 tablet 08/20/24 Rx Allergies Allergy/AdvReac Type Severity Reaction Status Date / Time Penicillins Allergy Itching Verified 08/20/24 09:35 morphine AdvReac Nausea & Verified 08/20/24 09:35 Vomiting Physical Exam Vitals: Vital Signs Temp Pulse Pulse Pulse Resp BP BP 08/20/24 23:23 98.3 F 99 16 127/69 08/20/24 21:44 62 08/20/24 21:37 60 08/20/24 17:27 98.2 F 52 L 16 127/63 08/20/24 16:00 74 16 118/50 08/20/24 15:30 52 L 16 111/42 08/20/24 15:00 50 L 16 106/47 08/20/24 14:45 51 L 16 108/48 08/20/24 14:30 50 L 16 115/61 08/20/24 14:15 52 L 16 132/53 08/20/24 14:00 48 L 16 119/52 08/20/24 13:45 52 L 16 125/51 08/20/24 13:34 68 16 133/48 08/20/24 13:19 60 16 135/58 08/20/24 13:04 96.8 F L 84 14 143/53 08/20/24 10:55 68 18 137/63 08/20/24 09:51 97.6 F 71 18 161/74 Pulse Ox 08/20/24 23:23 93 L 08/20/24 21:44 08/20/24 21:37 08/20/24 17:27 95 08/20/24 16:00 97 08/20/24 15:30 97 08/20/24 15:00 94 L 08/20/24 14:45 92 L 08/20/24 14:30 92 L 08/20/24 14:15 96 08/20/24 14:00 96 08/20/24 13:45 97 08/20/24 13:34 97 08/20/24 13:19 95 08/20/24 13:04 97 08/20/24 10:55 97 08/20/24 09:51 96 Intake and Output 08/20/24 08/20/24 08/21/24 14:59 22:59 06:59 Intake Total 1051 150 Output Total 40 Balance 1011 150 Intake: IV 1051 50 Intake, IV Titration 100 Amount IV Fluid Continuation 1, 100 000 ml @ 0 mls/hr IV .STK -MED ONE Rx#:[id number] Output: Estimated Blood Loss 40 Other: Weight 95.8 kg 95.8 kg
[2024-08-21] MEDS: LEVOTHYROXINE 50 MCG TAB PO SCH (06:04)
[2024-08-21] MEDS: HYDROmorphone 0.5 MG/0.5 ML SYRINGE IVP PRN (06:07)
[2024-08-21] MEDS: SYMBICORT 80-4.5 MCG INHALER INHALATION SCH (07:36)
--- NOTE | 2024-08-21 08:12 | XR ---
EXAMINATION TYPE: XR chest 1V portable DATE OF EXAM: 08/21/2024 6:56 AM COMPARISON: Chest radiographs from 09/14/2015 CLINICAL INDICATION: Female, 73 years old with history of shortness of breath; [facility] TECHNIQUE: XR chest 1V portable Frontal view of the chest. FINDINGS: Lungs/Pleura: There is no evidence of pleural effusion, focal consolidation, or pneumothorax. Pulmonary vascularity: Unremarkable. Heart/mediastinum: Cardiomediastinal silhouette is unremarkable. Musculoskeletal: No acute osseous pathology. Other findings: None Lines/Tubes: IMPRESSION: No acute cardiopulmonary disease/process. [facility], , 08/21/2024 8:10 AM
[2024-08-21 08:13] VITALS: BP 117/64; PULSE 84; RESP 17; TEMP 97.5
[2024-08-21 08:26] LABS: Basophils # (A) 0.01 X 10*3/uL (0.00-0.10); Basophils % (A) 0.1 %; Eosinophils # (A) 0 X 10*3/uL (0.04-0.35); Eosinophils % (A) 0 %; HCT 38.4 % (37.2-46.3); HGB 12.2 g/dL (12.0-15.0); Lymphocytes # (A) 1.58 X 10*3/uL (0.90-5.00); Lymphocytes % (A) 14.5 %; MCH 29.4 pg (27.0-32.0); MCHC 31.8 g/dL (32.0-37.0); MCV 92.5 FL (80.0-97.0); Mean Platelet Volume 9.4 FL (9.5-12.2); Monocytes # (A) 0.62 X 10*3/uL (0.20-1.00); Monocytes % (A) 5.7 %; NRBC Per 100 WBC 0 X 10*3/uL (0.00-0.01); Neutrophils # (A) 8.66 X 10*3/uL (1.80-7.70); Neutrophils % (A) 79.2 %; Platelet Count 257 X 10*3/uL (140-440); RBC 4.15 X 10*6/uL (4.10-5.20); RDW 13.3 % (11.5-14.5); WBC 10.92 X 10*3/uL (4.50-10.00)
[2024-08-21 08:57] LABS: BUN/Creat Ratio 19.71 Ratio (12.00-20.00); Blood Urea Nitrogen 13.8 mg/dL (9.0-27.0); Calcium 9.1 mg/dL (8.7-10.3); Carbon Dioxide 23.4 mmol/L (21.6-31.8); Chloride 104 mmol/L (96-109); Glucose 156 mg/dL (70-110); Sodium 140 mmol/L (135-145)
[2024-08-21] MEDS: PANTOPRAZOLE 40 MG TABLET PO SCH (09:24)
[2024-08-21] MEDS: LOSARTAN 50 MG TAB PO SCH (09:24)
--- NOTE | 2024-08-21 10:30 | P.DS ---
Providers Expected date of discharge: 08/21/24 Attending physician: Brennan Dewitt Consults: 08/20/24 13:08 Consult Physician Routine Consulting Provider: John Chacko Consult Reason/Comments: medical management Do you want consulting provider notified?: Yes 08/20/24 21:27 Consult Physician Routine Consulting Provider: Alyssa Muniz Consult Reason/Comments: new admit Do you want consulting provider notified?: Yes Primary care physician: John Chacko - Discharge Diagnosis(es) (1) Osteoarthritis of right knee Current Visit: Yes Status: Acute (2) S/P total knee arthroplasty Current Visit: Yes Status: Acute Hospital Course: This is a 73-year-old female with known history of degenerative arthritis of the right knee. The patient presented for evaluation as an outpatient. After discussion and consideration patient elects to proceed with total knee arthroplasty. The patient is seen preoperatively by Dr. Dewitt and medically cleared for surgery by their primary care physician. Patient is admitted to [facility] on 08/20/2024 for total knee arthroplasty. The procedure is performed without complication or sequelae. The patient is doing well postoperatively. Labs and vital signs are stable on day of discharge. On day of discharge patient's knee incision is healing well. There is minimal erythema. There is no drainage noted at this time. There is minimal soft tissue swelling to the knee. Patient has full foot and ankle motion without difficulty or pain. Calf is soft and nontender to palpation. Neurovascular status to the right lower extremity is intact. Patient is discharged home in good condition. Please see med rec for accurate list of home medications. Plan - Discharge Summary Discharge Rx Participant: Yes New Discharge Prescriptions: New HYDROcodone/APAP 7.5-325MG [[place] 7.5-325] 1 - 2 tab PO Q6H PRN #32 tab PRN Reason: Pain Aspirin 325 mg PO BID #60 tab Sennosides [Senokot] 2 tab PO DAILY PRN #60 tablet PRN Reason: Constipation No Action Fluticasone Propion/Salmeterol [Advair 250-50 Diskus] 1 inhalation PO RT-BID Albuterol Sulfate [Proair Hfa] 2 puff INHALATION BID Levothyroxine Sodium [Synthroid] 50 mcg PO DAILY Melatonin 10 mg PO HS Ibuprofen [Motrin] 400 mg PO Q6HR PRN PRN Reason: Pain guaiFENesin [Mucinex] 600 mg PO BID Omeprazole 20 mg PO DAILY Losartan [Cozaar] 50 mg PO DAILY Nystatin 100,000 Unit/gm Powd [Mycostatin Powder] 1 applic TOPICAL BID PRN PRN Reason: Rash Atorvastatin [Lipitor] 20 mg PO HS Metoprolol Succinate [Metoprolol Succinate ER] 25 mg PO HS Acetaminophen Tab [Tylenol] 1,000 mg PO Q8H PRN PRN Reason: Pain Discharge Medication List Albuterol Sulfate [Proair Hfa] 2 puff INHALATION BID 05/25/17 [History] Fluticasone Propion/Salmeterol [Advair 250-50 Diskus] 1 inhalation PO RT-BID 05/25/17 [History] Levothyroxine Sodium [Synthroid] 50 mcg PO DAILY 05/25/17 [History] Melatonin 10 mg PO HS 05/25/17 [History] Ibuprofen [Motrin] 400 mg PO Q6HR PRN 03/27/19 [History] Omeprazole 20 mg PO DAILY 06/15/21 [History] guaiFENesin [Mucinex] 600 mg PO BID 06/15/21 [History] Losartan [Cozaar] 50 mg PO DAILY 09/05/23 [History] Acetaminophen Tab [Tylenol] 1,000 mg PO Q8H PRN 08/13/24 [History] Atorvastatin [Lipitor] 20 mg PO HS 08/13/24 [History] Metoprolol Succinate [Metoprolol Succinate ER] 25 mg PO HS 08/13/24 [History] Nystatin 100,000 Unit/gm Powd [Mycostatin Powder] 1 applic TOPICAL BID PRN 08/13/24 [History] Aspirin 325 mg PO BID #60 tab 08/20/24 [Rx] HYDROcodone/APAP 7.5-325MG [[place] 7.5-325] 1 - 2 tab PO Q6H PRN #32 tab 08/20/24 [Rx] Sennosides [Senokot] 2 tab PO DAILY PRN #60 tablet 08/20/24 [Rx] Follow up Appointment(s)/Referral(s): [facility] [NON-STAFF] - As Needed (Continuous Passive Motion knee machine) Brennan Dewitt DO [Doctor of Osteopathic Medicine] - 2 Weeks Activity/Diet/Wound Care/Special Instructions: [facility] care: #[phone] Weightbearing as tolerated with a walker. CPM 5-6h daily as tolerated. Leave dressing intact. Dressing may be removed by home care nurse or by patient in 7 days. Then change dressing twice daily until follow up. May shower with initial dressing intact and after removal. If dressing become saturated, please remove. Recommend use of compression stockings daily until follow up to help prevent swelling and blood clots. May remove at night before sleeping. Please take aspirin 325mg twice daily for 30 days to prevent blood clots. Please follow up with [facility] and call with any questions or concerns, . Discharge Disposition: HOME WITH HOME HEALTH SERVICES
--- NOTE | 2024-08-21 13:09 | P.CNPUL ---
History of Present Illness Consult date: 08/21/24 Requesting physician: Mariann Shen Reason for consult: COPD Chief complaint: Right knee pain History of present illness: This is a very pleasant 73-year-old female patient with a known history of chronic obstructive pulmonary disease and follows with Dr. Chacko in our office. She also has a history of hyperlipidemia, gastroesophageal reflux disease, hypertension, hypothyroidism and chronic right knee pain. She was brought in yesterday electively for her severe osteoarthritis and had undergone a right total knee arthroplasty. She tolerated the procedure well. She is seen today in consultation on the regular medical floor. She is currently sitting up in bed. Awake and alert in no acute distress. Maintaining good O2 saturations in the 90s on room air. Chest x-ray revealed no acute pulmonary process. White count 10.9. Hemoglobin 12.2. Platelets 257. Sodium 140. Potassium 4.0. Bicarb 23. BUN 14. Creatinine 0.7. Glucose 156. Viral screen is negative. She is working well with the incentive spirometer. Review of Systems REVIEW OF SYSTEMS: CONSTITUTIONAL: Denies any recent significant weight loss or weight gain. EYES: Denies change in vision. EARS, NOSE, MOUTH, THROAT: Denies headaches, denies sore throat. CARDIOVASCULAR: Denies chest pain, palpitations or syncopal episodes. RESPIRATORY: Denies shortness of breath, cough, congestion or hemoptysis. GASTROINTESTINAL: Denies change in appetite, denies abdominal pain GENITOURINARY: Denies hematuria, denies infections. MUSKULOSKELETAL: Positive for right knee pain. INTEGUMENTARY: Denies rash, denies eczema. NEUROLOGICAL: Denies recent memory loss, no recent seizure activity. PSYCHIATRIC: Denies anxiety, denies depression. HEMATOLOGIC/LYMPHATIC: Denies anemia, denies enlarged lymph nodes. Past Medical History Past Medical History: COPD, Eye Disorder, GERD/Reflux, Hyperlipidemia, Hypertension, Osteoarthritis (OA), Sleep Apnea/CPAP/BIPAP, Thyroid Disorder Additional Past Medical History / Comment(s): Glaucoma, hypothyroidism, hx. dislocated Rt. clavicle, hx. migraines(decreasing in frequency), URINARY INCONTINENCE WEARS PAD, HX LOWER BACK PAIN, wears CPAP History of Any Multi-Drug Resistant Organisms: None Reported Past Surgical History: Bladder Surgery, Hysterectomy, Joint Replacement, Orthopedic Surgery, Tubal Ligation Additional Past Surgical History / Comment(s): Abdominal bladder suspension 1991, vaginal hysterectomy w/ anterior/posterior repair 2006, Bladder sling procedure 2020, D&C, LASER SX FOR GLAUCOMA, RT FOOT TENDON SX. Egd/Colonoscopy, periurethera coaptite injection 2021, Lt. TKR 2016 Past Anesthesia/Blood Transfusion Reactions: Postoperative Nausea & Vomiting (PONV) Additional Past Anesthesia/Blood Transfusion Reaction / Comment(s): PONV after hysterectomy only when she had morphine Past Psychological History: No Psychological Hx Reported Smoking Status: Former smoker, Second hand smoke exposure Past Alcohol Use History: Occasional Additional Past Alcohol Use History / Comment(s): QUIT SMOKING 1985, SMOKED 5 YRS 1PPD, father was a heavy smoker. 1-2 drinks/month Past Drug Use History: None Reported - Past Family History Mother Family Medical History: Cancer, COPD Additional Family Medical History / Comment(s): SKIN Father Family Medical History: Cancer, COPD Additional Family Medical History / Comment(s): SKIN, PROSTATE, STOMACH CANCER Medications and Allergies Home Medications Medication Instructions Recorded Confirmed Type Albuterol Sulfate [Proair Hfa] 2 puff INHALATION BID 05/25/17 08/20/24 History Fluticasone Propion/Salmeterol 1 inhalation PO RT-BID 05/25/17 08/20/24 History [Advair 250-50 Diskus] Levothyroxine Sodium [Synthroid] 50 mcg PO DAILY 05/25/17 08/20/24 History Melatonin 10 mg PO HS 05/25/17 08/20/24 History Ibuprofen [Motrin] 400 mg PO Q6HR PRN 03/27/19 08/20/24 History Omeprazole 20 mg PO DAILY 06/15/21 08/20/24 History guaiFENesin [Mucinex] 600 mg PO BID 06/15/21 08/20/24 History Losartan [Cozaar] 50 mg PO DAILY 09/05/23 08/20/24 History Acetaminophen Tab [Tylenol] 1,000 mg PO Q8H PRN 08/13/24 08/20/24 History Atorvastatin [Lipitor] 20 mg PO HS 08/13/24 08/20/24 History Metoprolol Succinate [Metoprolol 25 mg PO HS 08/13/24 08/20/24 History Succinate ER] Nystatin 100,000 Unit/gm Powd 1 applic TOPICAL BID PRN 08/13/24 08/20/24 History [Mycostatin Powder] Aspirin 325 mg PO BID #60 tab 08/20/24 Rx HYDROcodone/APAP 7.5-325MG [[place] 1 - 2 tab PO Q6H PRN #32 tab 08/20/24 Rx 7.5-325] Sennosides [Senokot] 2 tab PO DAILY PRN #60 tablet 08/20/24 Rx Allergies Allergy/AdvReac Type Severity Reaction Status Date / Time Penicillins Allergy Itching Verified 08/20/24 09:35 morphine AdvReac Nausea & Verified 08/20/24 09:35 Vomiting Physical Exam Vitals: Vital Signs Temp Pulse Pulse Resp BP Pulse Ox 08/21/24 07:44 62 08/21/24 07:37 60 08/21/24 07:16 97.5 F L 84 17 117/64 92 L 08/21/24 02:00 98.4 F 96 130/73 97 08/21/24 00:08 98.3 F 87 16 95 08/20/24 23:23 98.3 F 99 16 127/69 93 L 08/20/24 21:44 62 08/20/24 21:37 60 08/20/24 19:45 99 16 08/20/24 17:27 98.2 F 52 L 16 127/63 95 08/20/24 16:00 74 16 118/50 97 08/20/24 15:30 52 L 16 111/42 97 08/20/24 15:00 50 L 16 106/47 94 L 08/20/24 14:45 51 L 16 108/48 92 L 08/20/24 14:30 50 L 16 115/61 92 L 08/20/24 14:15 52 L 16 132/53 96 08/20/24 14:00 48 L 16 119/52 96 08/20/24 13:45 52 L 16 125/51 97 08/20/24 13:34 68 16 133/48 97 08/20/24 13:19 60 16 135/58 95 08/20/24 13:04 96.8 F L 84 14 143/53 97 Intake and Output 08/20/24 08/21/24 08/21/24 22:59 06:59 14:59 Intake Total 390 Output Total 600 Balance 390 -600 Intake: IV 50 Intake, IV Titration 100 Amount IV Fluid Continuation 1, 100 000 ml @ 0 mls/hr IV .[facility] ONE Rx#:[id number] Oral 240 Output: Urine 600 Other: # Voids 3 Weight 95.8 kg GENERAL EXAM: Alert, active, comfortable in no apparent distress. HEAD: Normocephalic. EYES: Normal reaction of pupils, equal size. NOSE: Clear with pink turbinates. THROAT: No erythema or exudates. NECK: No masses, no JVD. CHEST: No chest wall deformity. LUNGS: Equal air entry with no crackles, wheeze, rhonchi or dullness. CVS: S1 and S2 normal with no audible murmur, regular rhythm. ABDOMEN: No hepatosplenomegaly, normal bowel sounds, no guarding or rigidity. SPINE: No scoliosis or deformity SKIN: No rashes CENTRAL NERVOUS SYSTEM: No focal deficits, tone is normal in all 4 extremities. EXTREMITIES: Some edema over the right knee surgical site. Dressing dry and intact. No clubbing, no cyanosis. Peripheral pulses are intact. Results - Laboratory Findings CBC and BMP: 08/21/24 02:52 08/21/24 02:52 Abnormal lab findings: Abnormal Labs 08/21/24 08/21/24 02:52 02:52 WBC 10.92 H MCHC 31.8 L MPV 9.4 L Immature Gran # 0.05 H Neutrophils # 8.66 H Eosinophils # 0 L Anion Gap 12.60 H Glucose 156 H - Diagnostic Findings Chest x-ray: image reviewed Assessment and Plan Assessment: Severe osteoarthritis of the right knee, status post right total knee arthroplasty. Postoperative day #1 History of chronic obstructive pulmonary disease, currently inactive and stable. Chest x-ray shows no acute process Former smoker Hypertension Hyperlipidemia Gastroesophageal reflux disease Hypothyroidism Plan: The patient was seen and evaluated Chest x-ray, labs and medications reviewed Stable from the pulmonary standpoint To continue her home pulmonary medications Continue to work with the incentive spirometer Follow-up with Dr. Chacko in our office in 1 week I have personally seen and examined the patient, performed the documentation and the assessment and plan as written. Number of minutes spent on the visit: 20 Dictation was produced using [employer] ([employer]) dictation software. Please excuse any grammatical, word or spelling errors.
--- NOTE | 2024-08-21 13:13 | P.PN ---
Progress Note - Text 08/21/24 622am 73-year-old female status post total knee replacement patient has an On-Q pump for postop pain control with a solution running at 8 cc an hour with a VAS of 0. Dressing clean dry and intact. Assessment and plan continue On-Q pump infusion
== END 2024-08-21 14:06 | disposition home health service (06) ==
LOC: OR 09:11 → 4SSUR 12:58 → OR 08-21 14:06
PROVIDERS: ATTEND Orthopaedic Surgery
DX: M17.11 Unilateral primary osteoarthritis, right knee (principal); I10 Essential (primary) hypertension; E03.9 Hypothyroidism, unspecified; H40.9 Unspecified glaucoma; J44.9 Chronic obstructive pulmonary disease, unspecified; Z87.891 Personal history of nicotine dependence; Z88.0 Allergy status to penicillin; Z79.890 Hormone replacement therapy; Z79.51 Long term (current) use of inhaled steroids; Z79.899 Other long term (current) drug therapy
CPT/HCPCS: 94640; 73560; 27447; J2250; J1100; J0690 ×2; J2405; J2795; J1171; J1790; 64448; 64999; 71045; 80048; 85025; 87636

== ENCOUNTER → 2024-10-14 | Outpatient (CLI) | payer MEDICARE ==
[2024-10-14 15:34] LABS: ALT 23 U/L (8-44); AST 18 U/L (13-35); Albumin 4.5 g/dL (3.8-4.9); Albumin/Globulin Ratio 1.96 Ratio (1.60-3.17); Alkaline Phosphatase 74 U/L (41-126); BUN/Creat Ratio 22.43 Ratio (12.00-20.00); Blood Urea Nitrogen 15.7 mg/dL (9.0-27.0); Calcium 9.8 mg/dL (8.7-10.3); Carbon Dioxide 26.8 mmol/L (21.6-31.8); Chloride 107 mmol/L (96-109); Chol/HDL Ratio 2.78 Ratio; Globulin 2.3 g/dL (1.6-3.3); Glucose 126 mg/dL (70-110); LDL Cholesterol,Calculated 56.9 mg/dL (0.0-131.0); Potassium 4.7 mmol/L (3.5-5.5); Sodium 144 mmol/L (135-145); Total Bilirubin 0.3 mg/dL (0.3-1.2); Total Protein 6.8 g/dL (6.2-8.2)
== END | disposition home or self-care (01) ==
LOC: LABWHC1 08:22
PROVIDERS: ATTEND Internal Medicine Interventional Cardiology
DX: E78.2 Mixed hyperlipidemia (principal)
CPT/HCPCS: 36415; 80053; 80061

== ENCOUNTER → 2025-04-14 | Outpatient (CLI) | payer MEDICARE ==
[2025-04-14 10:22] LABS: ALT 22 U/L (8-44); AST 20 U/L (13-35); Cholesterol 147.00 mg/dL (0.00-200.00); HDL Cholesterol 51.60 mg/dL (40.00-60.00); LDL Cholesterol,Calculated 67.6 mg/dL (0.0-131.0); Triglycerides 139.00 mg/dL (0.00-149.00); VLDL Calculation 27.80 mg/dL (5.00-40.00)
== END | disposition home or self-care (01) ==
LOC: LABWHC1 07:13
PROVIDERS: ATTEND Nurse Practitioner Adult Health
DX: E78.2 Mixed hyperlipidemia (principal)
CPT/HCPCS: 36415; 80061; 84450; 84460